=== PATIENT | female | born 1940 | race Caucasian/White ===

== ENCOUNTER → 2017-04-24 10:21 | Outpatient (CLI) | payer MEDICARE, SELFPAY ==
[2017-03-03 12:54] VITALS: BP 161/81; BMI 34.9
== END ==
PROVIDERS: Family Provider Family Medicine; PCP Family Medicine; Visit Provider Family Medicine
DX: E55.9 Vitamin D deficiency, unspecified (principal)
CPT/HCPCS: 36415; 82306

== ENCOUNTER → 2018-02-11 08:30 | Outpatient (CLI) | payer MEDICARE, SELFPAY ==
--- NOTE | 2018-02-11 08:34 | BI_ITS ---
MAMMOGRAPHY - BILATERAL SCREENING REASON FOR EXAM: Female, 77 years old. Routine annual screening examination. PERTINENT HISTORY: Personal history of breast cancer. Prior right lumpectomy with radiation treatment. Prior left stereotactic breast biopsy. TECHNIQUE: Digital bilateral breast haylee (3D mammographic acquisition) in the CC and MLO projections. 2-D mediolateral oblique (MLO) and craniocaudad (CC) views of both breasts were obtained. CAD: Full Field Digital Mammography with Computer Added Detection was performed. COMPARISON: Comparison is made with prior study dated February 10, 2017 and February 05, 2016. FINDINGS: Breast Composition: The breasts are extremely dense, which lowers the sensitivity of mammography. There are no dominant masses or suspicious calcifications. The patient is status post lumpectomy in the deep upper lateral aspect of the right breast with resultant postoperative or changes in the breast. These are unchanged. 3 tissue clip markers are seen in the upper lateral portion of the left breast. No other significant abnormalities are identified. There has been no significant change since the prior study. BI/SCREENING MAMM (CAD), BILAT IMPRESSION: Stable bilateral screening mammogram. Yearly follow-up mammogram recommended. (A) ASSESSMENT CATEGORY: BIRADS Category 2: Benign. A letter regarding these results will be sent to the patient by the facility within 30 days. Approximately 10% of breast cancers are not detected by mammography. A normal mammogram should not delay biopsy of a clinically suspicious abnormality. [id number] Electronically Signed: Dick Lilly MD at 10:19 EST Tel [phone], Service support ,
--- OUTSIDE RECORDS SUMMARY | 2018-04-08 08:10 | XMS RPT_ITS ---
:1940 Author Organization [facility] Care Team Providers Name Role Phone Yosef Babin Attending Unavailable Jolliff, Irais Primary Care Unavailable Yosef Babin Attending Unavailable Jolliff, Irais Attending Unavailable Jolliff, Irais Primary Care Unavailable Jolliff, Irais Attending Unavailable Jolliff, Irais Primary Care Unavailable Yosef Babin Attending Unavailable Yosef Babin Referring Unavailable Jolliff, Irais Primary Care Unavailable Yosef Babin Attending Unavailable Jolliff, Irais Primary Care Unavailable Yosef Babin Consulting Unavailable PROBLEMS PROBLEMS DATE TYPE CONDITION / CODE ATTENDING STATUS SOURCE 02/17/2018 Unknown C50.919 - Yosef Babin Active [facility] unspecified site Repository of unspecified female breast / C50.919(ICD-10) 02/17/2018 Unknown C50.911 - Yosef Babin Active [place] [facility] unspecified site Repository of right female breast / C50.911(ICD-10) 04/24/2017 Unknown E55.9 - Vitamin D Irais Reynoso Active [place] deficiency, Community unspecified / Hospital E55.9(ICD-10) Repository PROCEDURES PROCEDURES No Procedure Records FoundRESULTS RESULTS ONCOLOGY VISIT REPORT Observed: 02/17/2018 Status: F Source: [facility] 3:18 PM REPOSITORY [facility] [place] [address] OFFICE VISIT Date of Service: 02/17/18 1513 MR#: [id number] Acct: [id number] Name: SHU CARLISLE Rep #: [id number] : 1940 From: Yosef Babin MD Age/Sex: 77/F Location: OMD Status: Signed Subjective - Date of Service Date of Service:: 02/17/18 - Chief Complaint F/u for R breast cancer. 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 S/P partial mastectomy and sentinel node biopsy axillary dissection. Date of diagnosis: 05/06/2006. S/P XRT to the right breast completed 08/17/2006. Took Arimidex 06/2006-07/2011. She is on observation, comes in for follow up. - Past Medical/Social History Past Medical History Past Medical History: Diabetes mellitus,Hyperlipidemia,Hypertension Cancer: Breast cancer Past Surgical History Surgical: Mastectomy Family History Paternal Past Medical History: Heart disease Maternal Past Medical History: Stroke Social History Social History: No changes Smoking Status Never smoker Review of Systems Constitutional:: Denies: Fever, Sweats, Weight loss, Appetite change, Chills Cardiovascular:: Denies: Chest pain, Palpitations, Dyspnea on exertion, Orthopnea, PND, Shortness of breath Respiratory: Denies: Cough, Hemoptysis, Shortness of Breath, Wheezing Gastrointestinal:: Denies: Abdominal pain, Nausea, Vomiting, Diarrhea, Constipation, Hematochezia Genitourinary: Denies: Dysuria, Hematuria, 15, Flank pain Musculoskeletal:: Denies: Back pain, Myalgia, Arthralgia Skin: Denies: Rash, Skin Changes, Wounds Neurological:: Denies: Headache, Dizziness, Visual changes, Tinnitus, Hearing loss Psychiatric: Denies: Anxiety, Depression, Homicidal Ideations, Suicidal Ideations Vital Signs Height 5 ft 5 in Weight: 95.254 kg Weight in Pounds 210.0 lbs Pulse Ox 98 - Physical Exam General: Alert, Oriented x3, No apparent distress HEENT: Atraumatic, PERRLA, EOMI, Normocephalic Oropharynx:: Dry mucosa Neck:: Supple, Trachea midline. Negative for: JVD, bilateral Cardiac:: Regular rate, Regular rhythm, Normal S1, Normal S2. Negative for: Murmur Lungs: Clear to auscultation, Excusion symmetrical. Negative for: Rhonchi, Wheezes Abdomen:: Bowel sounds x 4, Soft, Non-tender, Non-distended. Negative for: Hepatosplenomegaly Extremities:: Negative for: Cyanosis, Edema Neurological: Neuro grossly intact Skin:: Negative for: Lesions, Rash, Petechiae, Ecchymosis Psychiatric:: Appropriate affect, Euthymic Lymphatics:: Negative for: Cervical lymphadenopathy, Supraclavicular lymphadenopathy, Axillary lymphadenopathy Breast:: - - R breast-scar UO quadrant, L breast no masses. Laboratory Data: Laboratory Tests WBC 6.0 (4.4-11.0) K/mm3 RBC 4.86 (4.2-5.4) M/mm3 Hgb 13.3 (12.0-15.0) g/dl Diagnostic Data: 02/11/2018 Mammogram reviewed. BI/SCREENING MAMM (CAD), BILAT IMPRESSION: Stable bilateral screening mammogram. Yearly follow-up mammogram recommended. (A) Assessment and Plan Right Breast Cancer, stage IIB. No evidence of disease clinically. Plan is to continue observation. Obtain Mammogram in Jan 2019. RTC 12 months with CBC, CMP. Primary Care Provider: Referring Provider: Dr. Rohan Reynoso. - Problem List (1) History of right breast cancer Status: Chronic Code Visit Office Visits / Consults: [id number] OV L3 Est 02/17/18 0358 <Electronically signed by Yosef Babin MD> Date Yosef Babin MD Cosigner Signature: Date (if applicable) CC: Irais Reynoso MD CBC W/DIFF, AUTOMATED Collected: 02/17/2018 Status: F Source: [facility] 2:00 PM REPOSITORY Order Comment: Reason for Laboratory Test OV TYPE CODE TESTS RESULT OUT OF RANGE REFERENCE UNITS LAB L100.1000 4.4-11.0 K/mm3 Normal WBC 6.0 LAB L100.1200 4.2-5.4 M/mm3 Normal RBC 4.86 LAB L100.1300 12.0-15.0 g/dl Normal HGB 13.3 LAB L100.1400 37-47 % Normal HCT 41.3 LAB L100.1500 81-99 fL Normal MCV 85.0 LAB L100.1600 27.0-32.0 pg Normal MCH 27.4 LAB L100.1700 32-36 g/gl Normal MCHC 32.2 LAB L100.1810 11.6-14.6 % Normal RDW CV 14.5 LAB L100.1820 35.1-43.9 fl High RDW SD 44.9 LAB L100.1900 150-450 K/mm3 Normal PLT 189 LAB L100.2000 6.2-12.0 fl Normal MPV 10.5 LAB L100.2100 47-70 % Normal NEUT% 63.7 LAB L100.2200 19-41 % Normal LY% 27.6 LAB L100.2300 0-10 % Normal MONO% 6.0 LAB L100.2400 0-5 % Normal EO% 2.2 LAB L100.2500 0-1 % Normal BASO% 0.3 LAB L100.2550 0.0-0.9 % Normal IM GRAN % 0.200 Result Comment: IG% - Immature Granulocytes (promyelocytes, myelocytes and metamyelocytes) > 1% indicates that a LEFT SHIFT is Present. LAB L100.2620 2.0-7.7 X10 3/uL Normal Absolute Neut 3.9 LAB L100.2720 0.83-4.51 X10 3/ul Normal Absolute Lymph 1.67 Performed By: #### L100.0100 #### [facility] [place], [place], [id number] COMPREHENSIVE METABOLIC Collected: 02/17/2018 Status: F Source: [facility] GARZA 2:00 PM REPOSITORY Order Comment: Reason for Laboratory Test OV TYPE CODE TESTS RESULT OUT OF RANGE REFERENCE UNITS LAB L501.0100 74-106 mg/dL High GLU 128 Result Comment: Fasting Glucose result greater than or equal to 126 mg/dL suggests DIABETES MELLITUS per A.D.A. criteria. Please note revised GLUCOSE reference range effective 2017. LAB L501.1000 7-18 mg/dL High BUN 33 LAB L501.1100 0.55-1.02 mg/dL High CREAT,SERUM 1.11 Result Comment: The validity of the calculated GFR AND GFRAA in patients over 70 years has not been determined. Clinical correlation is essential. LAB L501.1110 >60 mL/min Low EST GFR 50 Result Comment: Non- GFR Calc LAB L501.1115 >60 mL/min Normal EST GFR - AA 61 Result Comment: GFR Calc LAB L501.1255 ml/min Normal Estimated CRCL 36.98 LAB L501.1300 10-20 RATIO High BUN/CRE 29.7 LAB L501.1500 6.4-8. g/dL Normal 2 T PROT 7.4 LAB L501.1800 3.2-5. g/dL Normal 0 ALB 3.6 LAB L501.1950 2.2-4. g/dL Normal 2 GLOB 3.8 LAB L501.2000 0.9-2. RATIO Normal 4 A/G 0.9 LAB L501.2200 8.5-10 mg/dL Normal .1 CA 8.9 LAB L501.4100 15-37 U/L Low AST 12 LAB L501.4305 45-117 U/L Normal ALK P 112 LAB L501.4405 13-56 U/L Normal ALT 15 LAB L501.4600 0.20-1 mg/dL Normal .00 T BILI 0.30 LAB L501.5300 136-14 mmol/L Normal 5 NA 142 LAB L501.5600 3.5-5. mmol/L Normal 1 K 3.9 LAB L501.5900 98-107 mmol/L High CL 108 LAB L501.6100 21.0-3 mmol/L Normal 2.0 CO2 26.0 LAB L501.6200 5-15 Normal GAP 8 Performed By: #### L500.4050 #### [facility] [address] [place], [address] SCREENING MAMM (CAD), Observed: 02/11/2018 Status: F Source: [facility] LANZA 8:34 AM REPOSITORY [facility] Imaging Services [address] [place] [address] SCREENING MAMM (CAD), BILAT MR#: [id number] Acct: [id number] Name: SHU CARLISLE Rep #: [id number] : 1940 F 77 From: Dick Lilly MD PCP: Irais Reynoso MD Status: REG CLI Study: SCREENING MAMM (CAD), BILAT Date of Exam: 02/11/18 Exam# [id number] Ordering Dr: Yosef Babin MD MAMMOGRAPHY - BILATERAL SCREENING REASON FOR EXAM: Female, 77 years old. Routine annual screening examination. PERTINENT HISTORY: Personal history of breast cancer. Prior right lumpectomy with radiation treatment. Prior left stereotactic breast biopsy. TECHNIQUE: Digital bilateral breast haylee (3D mammographic acquisition) in the CC and MLO projections. 2-D mediolateral oblique (MLO) and craniocaudad (CC) views of both breasts were obtained. CAD: Full Field Digital Mammography with Computer Added Detection was performed. COMPARISON: Comparison is made with prior study dated February 10, 2017 and February 05, 2016. FINDINGS: Breast Composition: The breasts are extremely dense, which lowers the sensitivity of mammography. There are no dominant masses or suspicious calcifications. The patient is status post lumpectomy in the deep upper lateral aspect of the right breast with resultant postoperative or changes in the breast. These are unchanged. 3 tissue clip markers are seen in the upper lateral portion of the left breast. No other significant abnormalities are identified. There has been no significant change since the prior study. BI/SCREENING MAMM (CAD), BILAT IMPRESSION: Stable bilateral screening mammogram. Yearly follow-up mammogram recommended. (A) ASSESSMENT CATEGORY: BIRADS Category 2: Benign. A letter regarding these results will be sent to the patient by the facility within 30 days. Approximately 10% of breast cancers are not detected by mammography. A normal mammogram should not delay biopsy of a clinically suspicious abnormality. [id number] Electronically Signed: Dick Lilly MD at 10:19 EST Tel [phone], Service support , CC: Irais Reynoso MD; Yosef Babin MD Explosive Operator Bomb: Signed VITAMIN D,25 HYDROXY Collected: 04/24/2017 Status: F Source: [facility] 10:23 AM REPOSITORY TYPE CODE TESTS RESULT OUT OF REFERENCE UNITS RANGE LAB L506.1000 19.95-100.01 ng/mL Low Vitamin D 17.0 25-OH Result Comment: Vitamin D 25(OH) Status Range Deficiency <20 ng/mL (50nmol/L) Insuffciency 20 - 30 ng/mL (50 - 75 nmol/L) Sufficiency 30 - 100 ng/mL (75 - 250 nmol/L) Toxicity >100 ng/mL (>250 nmol/L) Performed By: #### L506.1000 #### [facility] [place] [place], [address] BASIC METABOLIC Collected: 03/13/2017 Status: F Source: [facility] PROFILE (BMP) 3:06 PM REPOSITORY Order Comment: Order Date: 03/13/17 Order Info: 0667-1 - BMP Order Info: 0788-1 - LIVER Order Info: 93539-1 - LIPID TYPE CODE TESTS RESULT OUT OF RANGE REFERENCE UNITS LAB L501.0100 70-110 mg/dL Normal GLU 108 LAB L501.1000 7-18 mg/dL High BUN 29 LAB L501.1100 0.55-1.02 mg/dL High 1.15 CREAT,SERUM Result Comment: The validity of the calculated GFR AND GFRAA in patients over 70 years has not been determined. Clinical correlation is essential. LAB L501.1110 >60 mL/min Low EST GFR 48 Result Comment: Non- GFR Calc LAB L501.1115 >60 mL/min Low EST GFR - AA 59 Result Comment: GFR Calc LAB L501.1300 10-20 RATIO High BUN/CRE 25.2 LAB L501.2200 8.5-10.1 mg/dL CA Normal 8.9 LAB L501.5300 136-145 mmol/L NA Normal 141 LAB L501.5600 3.5-5.1 mmol/L K Normal 3.6 LAB L501.5900 98-107 mmol/L CL Normal 103 LAB L501.6100 21.0-32.0 mmol/L Normal CO2 28.0 LAB L501.6200 5-15 Normal GAP 10 Performed By: #### L500.2500, L500.3400, L500.4100, L502.0250 #### [facility] [address] [place], [place], [address] LIVER PROFILE Collected: 03/13/2017 Status: F Source: [facility] 3:06 PM REPOSITORY Order Comment: Order Date: 03/13/17 Order Info: 0667-1 - BMP Order Info: 0788-1 - LIVER Order Info: 01975-7 - LIPID TYPE CODE TESTS RESULT OUT OF RANGE REFERENCE UNITS LAB L501.1500 6.4-8.2 g/dL Normal T PROT 7.8 LAB L501.1800 3.4-5.0 g/dL Normal ALB 3.8 Result Comment: Please note revised Albumin AND Globulin reference range effective 2016. LAB L501.1950 2.2-4.2 g/dL Normal GLOB 4.0 LAB L501.4100 15-37 U/L Low AST 14 LAB L501.4305 45-117 U/L Normal ALK P 111 LAB L501.4405 12-78 U/L Normal ALT 20 LAB L501.4600 0.20-1.00 mg/dL Normal T BILI 0.50 LAB L501.4700 0.00-0.30 mg/dL Normal D BILI 0.08 Performed By: #### L500.2500, L500.3400, L500.4100, L502.0250 #### [facility] [address] [place], [place], [address] LIPID PROFILE Collected: 03/13/2017 Status: F Source: [place] 3:06 PM REPOSITORY Order Comment: Order Date: 03/13/17 Order Info: 0667-1 - BMP Order Info: 0788-1 - LIVER Order Info: 73731-2 - LIPID TYPE CODE TESTS RESULT OUT OF RANGE REFERENCE UNITS LAB L501.4900 200 mg/dL Normal CHOL 162 Result Comment: <200 mg/dL Desirable 200-240 mg/dL Borderline >240 mg/dL High Risk LAB L501.5000 mg/dL Normal TRIG 89 Result Comment: The drugs N-Acetylcysteine and Metamizole may falsely depress this assay. Serum Triglycerides Reference Interval Normal <150 mg/dL Borderline high 150 - 199 mg/dL High 200 - 499 mg/dL Very High > or = 500 mg/dL LAB L501.6400 mg/dL Normal HDL 72 Result Comment: The drugs N-Acetylcysteine and Metamizole may falsely depress this assay. Reference Range HDL <40 mg/dL Low HDL Cholesterol HDL >or= 60 mg/dL High HDL Cholesterol LAB L501.6500 0-130 mg/dL Normal LDL 72 LAB L501.6600 5-40 mg/dL Normal VLDL 18 Performed By: #### L500.2500, L500.3400, L500.4100, L502.0250 #### [facility] [address] [place], [address] MICROALB:CREAT Collected: 03/13/2017 Status: F Source: [facility] RATIO,RANDOM UR 3:06 PM REPOSITORY Order Comment: Order Date: 03/13/17 Order Info: 0779-1 - MIACRE TYPE CODE TESTS RESULT OUT OF RANGE REFERENCE UNITS LAB L501.1200 NO RANGE EST. mg/dL Normal UR CREAT 69.20 LAB L502.0500 NO RANGE EST. mg/L Normal 52.9 MICROALBUMIN ,UR LAB L502.0600 <30 mg/g CRE mg/g CRE High 76.4 MALB:CREAT Performed By: #### L500.2500, L500.3400, L500.4100, L502.0250 #### [facility] [address] [place], [place], [address] CBC W/DIFF, AUTOMATED Collected: 03/03/2017 Status: F Source: [place] 12:34 PM REPOSITORY TYPE CODE TESTS RESULT OUT OF RANGE REFERENCE UNITS LAB L100.1000 4.4-11.0 K/mm3 Normal WBC 6.4 LAB L100.1200 4.2-5.4 M/mm3 Normal RBC 5.03 LAB L100.1300 12.0-15.0 g/dl Normal HGB 13.6 LAB L100.1400 37-47 % Normal HCT 41.4 LAB L100.1500 81-99 fL Normal MCV 82.3 LAB L100.1600 27.0-32.0 pg Normal MCH 27.0 LAB L100.1700 32-36 g/gl Normal MCHC 32.9 LAB L100.1810 11.6-14.6 % High RDW CV 15.3 LAB L100.1820 35.1-43.9 fl High RDW SD 45.9 LAB L100.1900 150-450 K/mm3 Low PLT 149 LAB L100.2000 6.2-12.0 fl High MPV 12.3 LAB L100.2100 47-70 % Normal NEUT% 61.0 LAB L100.2200 19-41 % Normal LY% 29.7 LAB L100.2300 0-10 % Normal MONO% 6.8 LAB L100.2400 0-5 % Normal EO% 2.0 LAB L100.2500 0-1 % Normal BASO% 0.3 LAB L100.2550 0.0-0.9 % Normal IM GRAN % 0.200 Result Comment: IG% - Immature Granulocytes (promyelocytes, myelocytes and metamyelocytes) > 1% indicates that a LEFT SHIFT is Present. LAB L100.2620 2.0-7.7 X10 3/uL Normal Absolute Neut 3.9 LAB L100.2720 0.83-4.51 X10 3/ul Normal Absolute Lymph 1.91 Performed By: #### L100.0100 #### [facility] [address] [place], [place], [address] ALLERGIES ALLERGIES DATE TYPE / CODE NAME / CODE REACTION SEVERITY SOURCE 02/17/2018 Drug No Known Unknown [facility] Allergy/4160 Allergies/F00 Hospital 33059(SNOMED 8543660(RXNOR Repository CT) M) ENCOUNTERS ENCOUNTERS ADMIT/DISCHARGE ACCOUNT ADMITTING ENCOUNTER LOCATION SOURCE NUMBER CLASS 02/17/2018 [id number] Ambulatory BMSBuilding:B [place] 6 MS.CF.[facility] Repository 02/17/2018 [id number] Ambulatory [place] 2 [facility] ing:OMD Repository 02/11/2018 [id number] Ambulatory [place] 2 [facility] ing:OPBI Repository 04/24/2017 [id number] Ambulatory [place] 1 [facility] ing:MFPLAB Repository 03/13/2017 [id number] Ambulatory [place] 2 [facility] ing:MFPLAB Repository 03/03/2017 [id number] Ambulatory BMSBuilding:B [place] 8 MS.[facility] Repository PAYERS PAYERS ENCOUNTER GUARANTOR PAYER SUBSCRIBER SOURCE 02/17/2018 SHU F Primary SHU F [place] [id number] [facility] Number: [id number] [facility]415YEffective Repository [address]Bpj: 330) Date:6055-18-46BC [phone] () [id number] [place] [address]EG: 02/17/2018 Secondary NOT GIVENUNK [place] Insurance:SELF PAY [facility] Number: Effective Repository Date:2018-02-17 02/17/2018 SHU F Primary SHU F [place] [id number] E Insurance:[facility] Number: [id number] [facility]415YEffective Repository [address]Vuz: 330) Date:6925-99-47NX [phone] () [id number] [place] [address]JD: 02/17/2018 Secondary NOT GIVENUNK [place] Insurance:SELF PAY [facility] Number: Effective Repository Date:2016-06-04 02/11/2018 SHU Baxter Primary SHU [id number] E Insurance:AETNA KAUFFMANDOB: [facility] Number: [id number] [id number] Repository [address]Fhm: (330) Date:9222-79-60JF [phone] (HP) [id number] [facility] [place] [address]CR: 02/11/2018 Secondary NOT GIVENUNK [place] Insurance:SELF PAY [facility] Number: Effective Repository Date:2017-12-17 04/24/2017 Shu Baxter Primary Shu [id number] E Insurance:AETNA KauffmanDOB: [facility] Number: [id number] [id number] Repository [address]Ocb: (330) Date:9043-38-91SW [phone] (HP) [id number] [facility] [place] [address]LH: 04/24/2017 Secondary NOT GIVENUNK [place] Insurance:SELF PAY [facility] Number: Effective Repository Date:2017-04-24 03/13/2017 Shu Baxter Primary Shu [id number] E Insurance:AETNA KauffmanDOB: [facility] Number: [id number], [place] [id number] Repository [address]Ycv: (330) Date:9857-97-47FP [phone] (HP) [id number] [facility] [place] [address]VE: 03/13/2017 Secondary NOT GIVENUNK [place] Insurance:SELF PAY [facility] Number: Effective Repository Date:2017-03-13 03/03/2017 Shu Baxter Primary Shu [id number] E Insurance:AETNA KauffmanDOB: [facility] Number: [id number], [place] [id number] Repository [address]Cxr: (330) Date:0222-86-87VC [phone] () [id number] [place] [address]JY: 03/03/2017 Secondary NOT GIVENUNK [place] Insurance:SELF PAY [facility]: Effective Repository Date:2017-03-03
== END ==
PROVIDERS: Family Provider Family Medicine; PCP Family Medicine; Referring Provider Internal Medicine Medical Oncology; Visit Provider Internal Medicine Medical Oncology
DX: Z12.31 Encounter for screening mammogram for malignant neoplasm of breast (principal)
CPT/HCPCS: 77063; 77067

== ENCOUNTER → 2018-04-30 11:01 | Outpatient (CLI) | payer MEDICARE, SELFPAY ==
[2018-02-17 15:19] VITALS: BMI 33.8
[2018-04-30 12:52] LABS: Microalbumin,Random Urine 59.1 mg/L (NO RANGE EST.); Microalbumin:Creatinine Ratio 61.9 mg/g CRE (<30 mg/g CRE)
[2018-04-30 13:15] LABS: AST(SGOT) 13 U/L (15-37); Alanine Aminotransfer ALT/SGPT 15 U/L (13-56); Albumin, Serum 3.9 g/dL (3.2-5.0); Alkaline Phosphatase 104 U/L (45-117); Anion Gap 11 (5-15); BUN 35 mg/dL (7-18); BUN/Creat Ratio 33.7 RATIO (10-20); Bilirubin, Direct 0.19 mg/dL (0.00-0.30); Chloride 104 mmol/L (98-107); Cholesterol 165 mg/dL (200); Creatinine, Serum 1.04 mg/dL (0.55-1.02); EST Glomerular Filtration Rate 54 mL/min (>60); Est Glom Filt Rate - Afr Amer 66 mL/min (>60); Globulin 3.4 g/dL (2.2-4.2); Glucose 98 mg/dL (74-106); High Density Lipoprotein 74 mg/dL; Protein, Total 7.3 g/dL (6.4-8.2); Sodium Level 139 mmol/L (136-145); Triglycerides 76 mg/dL; Very Low Density Lipoprotein 15 mg/dL (5-40)
== END ==
PROVIDERS: Family Provider Family Medicine; PCP Family Medicine; Visit Provider Family Medicine
DX: E11.9 Type 2 diabetes mellitus without complications (principal)
CPT/HCPCS: 36415; 80048; 80061; 80076; 82043; 82570

== ENCOUNTER → 2018-10-29 10:22 | Outpatient (CLI) | payer MEDICARE, SELFPAY ==
[2018-02-17 15:19] VITALS: BMI 33.8
[2018-10-29 12:57] LABS: Anion Gap 7 (5-15); BUN 34 mg/dL (7-18); BUN/Creat Ratio 31.5 RATIO (10-20); Chloride 107 mmol/L (98-107); Creatinine, Serum 1.08 mg/dL (0.55-1.02); EST Glomerular Filtration Rate 52 mL/min (>60); Est Glom Filt Rate - Afr Amer 63 mL/min (>60); Glucose 93 mg/dL (74-106); Potassium 3.9 mmol/L (3.5-5.1); Sodium Level 141 mmol/L (136-145)
== END ==
PROVIDERS: Family Provider Family Medicine; PCP Family Medicine; Referring Provider Family Medicine; Visit Provider Family Medicine
DX: E11.9 Type 2 diabetes mellitus without complications (principal); I10 Essential (primary) hypertension
CPT/HCPCS: 36415; 80048; 83036

== ENCOUNTER → 2018-11-24 11:28 | Outpatient (CLI) | payer MEDICARE, SELFPAY ==
[2018-02-17 15:19] VITALS: BMI 33.8
--- NOTE | 2018-11-24 11:32 | RAD_ITS ---
STUDY: X-RAY - RIGHT TIBIA AND FIBULA REASON FOR EXAM: Female, 78 years old. Unexplained bruising of right lower leg TECHNIQUE: 3 view(s) of the tibia and fibula were obtained. COMPARISON: None. FINDINGS: Normal visualized tibia. Normal visualized fibula. There are degenerative changes of the patellofemoral compartment of the knee. There are degenerative changes of the talocalcaneal joint. There is a large plantar aspect calcaneal spur. The soft tissue structures are unremarkable. RAD/Tibia & Fibula 2 Views IMPRESSION: The tibia and fibula appear normal. There are degenerative changes of the patellofemoral compartment of the knee. There are degenerative changes of the talocalcaneal articulation. There is a large plantar aspect calcaneal spur. Electronically Signed: Issa Lowery MD at 23:49 EDT , Service support ,
== END ==
PROVIDERS: Family Provider Family Medicine; PCP Family Medicine; Referring Provider Family Medicine; Visit Provider Family Medicine
DX: S89.91XA Unspecified injury of right lower leg, initial encounter (principal); X58.XXXA Exposure to other specified factors, initial encounter; M77.31 Calcaneal spur, right foot
CPT/HCPCS: 73590

== ENCOUNTER → 2019-02-14 07:59 | Outpatient (CLI) | payer MEDICARE, SELFPAY ==
[2018-02-17 15:19] VITALS: BMI 33.8
--- NOTE | 2019-02-14 08:00 | BI_ITS ---
MAMMOGRAPHY - BILATERAL SCREENING REASON FOR EXAM: Female, 78 years old. Routine annual screening examination. PERTINENT HISTORY: Personal history of breast cancer.. Prior right lumpectomy and radiation therapy. History of remote left stereotactic breast biopsy. TECHNIQUE: Digital bilateral breast sid (3D mammographic acquisition) in the CC and MLO projections. 2-D mediolateral oblique (MLO) and craniocaudad (CC) views of both breasts were obtained. CAD: Full Field Digital Mammography with Computer Added Detection was performed. COMPARISON: Comparison is made with prior study dated the February 11, 2018 and February 10, 2017. FINDINGS: Breast Composition: The breasts are extremely dense, which lowers the sensitivity of mammography. The patient is status post lumpectomy in the deep upper lateral aspect of the right breast with resultant postoperative the form of 50. This is unchanged. There now is evidence of a 1 cm well-defined nodule in the deep upper slightly lateral portion of the right breast. Correlation with ultrasound is recommended. 3 tissue clip markers are seen in the upper outer quadrant of the left breast from prior stereotactic biopsies. No other significant abnormalities are identified. BI/SCREEN MAMM (CAD) W/SID BILAT IMPRESSION: Status post right lumpectomy with resultant postoperative changes. 1 cm nodular density in the right breast as described. Correlation with ultrasound is recommended. ASSESSMENT CATEGORY: BIRADS Category 0: Incomplete. Need additional imaging evaluation. A letter regarding these results will be sent to the patient by the facility within 30 days. Approximately 10% of breast cancers are not detected by mammography. A normal mammogram should not delay biopsy of a clinically suspicious abnormality. [id number] Electronically Signed: Dick Lilly, at 9:07 EST , Service support ,
== END ==
PROVIDERS: Family Provider Family Medicine; PCP Family Medicine; Referring Provider Internal Medicine Medical Oncology; Visit Provider Internal Medicine Medical Oncology
DX: Z12.31 Encounter for screening mammogram for malignant neoplasm of breast (principal); Z85.3 Personal history of malignant neoplasm of breast
CPT/HCPCS: 77063; 77067

== ENCOUNTER → 2019-02-16 10:55 | Outpatient (CLI) | payer MEDICARE, SELFPAY ==
[2018-02-17 15:19] VITALS: BMI 33.8
--- NOTE | 2019-02-16 10:57 | US_ITS ---
STUDY: ULTRASOUND BREAST - RIGHT REASON FOR EXAM: Female, 78 years old. Abnormal screening mammogram. Patient has a history of breast cancer with prior right lumpectomy and radiation therapy. TECHNIQUE: Axial and longitudinal images of the RIGHT breast were performed with a high resolution ultrasound transducer. # OF IMAGES: 85 COMPARISON: Comparison is made with prior mammogram dated February 14, 2019. FINDINGS: RIGHT Breast: There is a 1.2 cm x 0.7 cm x 0.9 cm hypoechoic solid nodule which likely irregular margins at the 1:00 position of the breast at 1 cm from the nipple. A biopsy is recommended for further evaluation. There is a 1.8 cm x 1.6 x 1.2 cm irregular hypoechoic nodular density with posterior acoustical shadowing is seen at the lumpectomy site. Within the scar tissue, there is a 8 mm x 5 mm x 4 mm cyst. US/Breast Limited Unilateral IMPRESSION: 1.2 cm x 0.7 cm x 0.9 cm hypoechoic irregular nodule at the 1:00 position the breast at 1 cm from nipple. A biopsy is recommended. At the biopsy site, there is a 1.8 cm x 1.6 x 1.2 cm irregular hypoechoic density. Recurrent carcinoma cannot be excluded. A biopsy is recommended as well. ASSESSMENT CATEGORY: BIRADS Category 4: Suspicious - Biopsy Should Be Considered. A letter regarding these results will be sent to the patient by the facility within 30 days. Electronically Signed: Dick Lilly, at 8:56 EST , Service support ,
== END ==
PROVIDERS: Family Provider Family Medicine; PCP Family Medicine; Referring Provider Internal Medicine Medical Oncology; Visit Provider Internal Medicine Medical Oncology
DX: R92.8 Other abnormal and inconclusive findings on diagnostic imaging of breast (principal)
CPT/HCPCS: 76642

== ENCOUNTER → 2019-03-01 16:02 | Outpatient (CLI) | payer MEDICARE, SELFPAY ==
[2019-03-01 14:32] VITALS: BMI 33.3
--- NOTE | 2019-03-01 15:05 | BRBX_PTH ---
PATIENT: MIHAELA CARLISLE LOC: [facility] U#:[id number] AGE/SX: 84/F ROOM: RE03/01/[address]: Dr. Aaron Negrete MD : 1940 BED: DIS: SPEC #: [id number] RECD: 03/01/19 16:04 STATUS: CHRIS BRONWYN #: [id number] RIKKI: 03/01/19 15:[address]: Aaron Negrete DEPT: SURGICAL PATHOLOGY RECD BY: Chase Alfaro ENTERED: 03/02/19 11:46 SP TYPE: BREAST BX OTHR DR: Dr. Irais Reynoso MD Tissues: A - Right breast, NOS B - Right breast, NOS Procedures: Surgery Specimen Level IV HEADER OPERATION: Right breast biopsy x2 PRE-OP DIAGNOSIS: Right breast abnormal US TISSUE SUBMITTED: A. Right breast tissue, 1 o'clock periareolar, B. Right breast - remote lumpectomy site MICROSCOPIC DIAGNOSIS A. Right breast, 1 o'clock, periareolar, core biopsy: Consistent with hyalinized fibroadenoma. Negative for atypia or malignancy. B. Remote lumpectomy site, core biopsy: Fragments of fibroadipose tissue, fibroconnective tissue and skeletal muscle tissue with a few macrophages. Breast tissue is not present in the submitted specimen. Negative for atypia or malignancy. COCO:elli 03/03/19 COMMENT Correlation with clinical, radiologic findings and appropriate follow up are necessary. Please make reference to previous specimen ([id number]) right breast tissue with needle localization biopsy with diagnosis of invasive ductal carcinoma. MICROSCOPIC DESCRIPTION Slides are reviewed. GROSS DESCRIPTION A - Received in fixative is one container labeled with the patient's name and designated right breast periareolar. The specimen consists of multiple elongated fragments of diaz-yellow fibroadipose tissue that in aggregate measure 1.5 x 0.5 x 0.1 cm. The entire specimen is submitted in one cassette. B - Received in fixative is one container labeled with the patient's name and designated right remote lumpectomy site. The specimen consists of multiple fragments of diaz-yellow fibroadipose tissue that in aggregate measure 1 x 0.3 x 0.1 cm. The entire specimen is submitted in one cassette. / COCO:elli 03/02/19 TC:1 CPT: 64020 x2
== END ==
PROVIDERS: Family Provider Family Medicine; PCP Family Medicine; Referring Provider Surgery; Visit Provider Surgery
DX: R92.8 Other abnormal and inconclusive findings on diagnostic imaging of breast (principal)
CPT/HCPCS: 88305

== ENCOUNTER → 2019-11-04 14:24 | Outpatient (CLI) | payer MEDICARE, SELFPAY ==
[2019-03-01 14:32] VITALS: BMI 33.3
[2019-11-04 17:27] LABS: Absolute Lymphocyte Count 1.29 X10^3/uL (0.83-4.51); Absolute Neutrophil Count 4.1 X10^3/uL (2.0-7.7); Basophil# 0.04 X10^3/uL; Basophil% 0.7 % (0-1); Eosinophil# 0.09 X10^3/uL; Eosinophils% 1.5 % (0-5); Hematocrit 40.4 % (37-47); Hemoglobin 12.5 g/dL (12.0-15.0); Lymphocyte # 1.29 X10^3/ul (4.0); Lymphocyte % 21.4 % (19-41); Mean Corp Hgb Conc 30.9 g/dL (32-36); Mean Corpuscular Hgb 26.9 pg (27.0-32.0); Mean Corpuscular Volume 87.1 fL (81-99); Mean Platelet Vol. 11.7 fl (6.2-12.0); Monocyte# 0.48 X10^3/uL; NRBC Flagged by Analyzer 0 % (0-5); Neutrophil # 4.11 X10^3/uL (2.7-7.7); Neutrophil % 68.2 % (47-70); Platelet Count 204 K/mm3 (150-450); RBC Distribution Width CV 14.6 % (11.6-14.6); RBC Distribution Width SD 45.5 fl (35.1-43.9); Red Blood Count 4.64 M/mm3 (4.2-5.4)
[2019-11-04 17:46] LABS: AST(SGOT) 11 U/L (15-37); Alanine Aminotransfer ALT/SGPT 15 U/L (13-56); Anion Gap 5 (5-15); BUN 25 mg/dL (7-18); BUN/Creat Ratio 23.8 RATIO (10-20); Calcium,Total 8.9 mg/dL (8.5-10.1); Chloride 106 mmol/L (98-107); Cholesterol 169 mg/dL (200); Creatinine, Serum 1.05 mg/dL (0.55-1.02); EST Glomerular Filtration Rate 53 mL/min (>60); Est Glom Filt Rate - Afr Amer 65 mL/min (>60); Glucose 110 mg/dL (74-106); High Density Lipoprotein 66 mg/dL; Potassium 3.8 mmol/L (3.5-5.1); Sodium Level 140 mmol/L (136-145); Triglycerides 51 mg/dL; Very Low Density Lipoprotein 10 mg/dL (5-40)
[2019-11-04 17:55] LABS: Hemoglobin A1c 5.9 % (3.8-5.6)
== END ==
PROVIDERS: PCP Family Medicine; Referring Provider Family Medicine; Visit Provider Family Medicine
DX: E11.9 Type 2 diabetes mellitus without complications (principal); I10 Essential (primary) hypertension; D50.9 Iron deficiency anemia, unspecified; E78.5 Hyperlipidemia, unspecified
CPT/HCPCS: 36415; 80048; 80061; 83036; 84450; 84460; 85025

== ENCOUNTER → 2020-02-16 10:47 | Outpatient (CLI) | payer MEDICARE, SELFPAY ==
[2019-03-01 14:32] VITALS: BMI 33.3
--- NOTE | 2020-02-16 11:04 | BI_ITS ---
MAMMOGRAPHY - BILATERAL SCREENING REASON FOR EXAM: Female, 79 years old. Routine annual screening examination. PERTINENT HISTORY: Personal history of breast cancer. Prior right lumpectomy with radiation treatment. Prior left stereotactic breast biopsy and left ultrasound-guided breast biopsy. TECHNIQUE: Digital bilateral breast sid (3D mammographic acquisition) in the CC and MLO projections. 2-D mediolateral oblique (MLO) and craniocaudad (CC) views of both breasts were obtained. CAD: Full Field Digital Mammography with Computer Added Detection was performed. COMPARISON: Comparison is made with prior study dated 02/14/2019 and 02/11/2018. FINDINGS: Breast Composition: The breasts are extremely dense, which lowers the sensitivity of mammography. There are no dominant masses or suspicious calcifications. Once again, the patient is status post lumpectomy in the axillary region of the right breast with resultant postoperative deformity. A tissue clip marker is now seen within a small nodular density in the upper slightly lateral portion of the right breast from prior ultrasound-guided biopsy. Once again, 3 tissue markers are seen in the upper outer quadrant of the left breast. No other significant abnormalities are identified. There has been no significant change since the prior study. BI/SCREEN MAMM (CAD) W/SID BILAT IMPRESSION: Stable bilateral screening mammogram. Yearly follow-up mammogram recommended. (A) ASSESSMENT CATEGORY: BIRADS Category 2: Benign. A letter regarding these results will be sent to the patient by the facility within 30 days. Approximately 10% of breast cancers are not detected by mammography. A normal mammogram should not delay biopsy of a clinically suspicious abnormality. [id number] Electronically Signed: Dick Lilly, at 12:22 EST , Service support ,
== END ==
PROVIDERS: PCP Family Medicine; Referring Provider Internal Medicine Hematology & Oncology; Visit Provider Family Medicine
DX: Z12.31 Encounter for screening mammogram for malignant neoplasm of breast (principal)
CPT/HCPCS: 77063; 77067

== ENCOUNTER 2020-04-12 08:45 | Outpatient (RCR) | payer MEDICARE, SELFPAY ==
[2020-02-23 14:22] VITALS: BMI 31.8
== END 2020-04-12 23:59 ==
LOC: IMMUN 08:45
PROVIDERS: PCP Family Medicine; Visit Provider Family Medicine
DX: Z23 Encounter for immunization (principal)
CPT/HCPCS: 0011A; 0012A; 91301

== ENCOUNTER → 2020-06-27 16:50 | Outpatient (CLI) | payer MEDICARE, SELFPAY ==
[2020-02-23 14:22] VITALS: BMI 31.8
[2020-06-27 17:58] LABS: Absolute Lymphocyte Count 1.58 X10^3/uL (0.83-4.51); Basophil# 0.04 X10^3/uL; Basophil% 0.6 % (0-1); Eosinophil# 0.07 X10^3/uL; Eosinophils% 1.1 % (0-5); Hemoglobin 12.8 g/dL (12.0-15.0); Lymphocyte # 1.58 X10^3/ul (0.83-4.51); Lymphocyte % 25.6 % (19-41); Mean Corp Hgb Conc 29.8 g/dL (32-36); Mean Corpuscular Hgb 25.5 pg (27.0-32.0); Mean Corpuscular Volume 85.8 fL (81-99); Mean Platelet Vol. 11.2 fl (6.2-12.0); Monocyte# 0.48 X10^3/uL; Monocyte% 7.8 % (0-10); NRBC Flagged by Analyzer 0 % (0-5); Neutrophil # 3.99 X10^3/uL (2.7-7.7); Neutrophil % 64.7 % (47-70); Platelet Count 193 K/mm3 (150-450); RBC Distribution Width CV 14.5 % (11.6-14.6); RBC Distribution Width SD 45.2 fl (35.1-43.9); Red Blood Count 5.01 M/mm3 (4.2-5.4); White Blood Count 6.2 K/mm3 (4.4-11.0)
[2020-06-27 18:45] LABS: ALB/GLOB Ratio 1.1 RATIO (0.9-2.4); AST(SGOT) 8 U/L (15-37); Alanine Aminotransfer ALT/SGPT 14 U/L (13-56); Albumin, Serum 3.8 g/dL (3.2-5.0); Alkaline Phosphatase 105 U/L (45-117); Anion Gap 5 (5-15); BUN 29 mg/dL (7-18); BUN/Creat Ratio 29.1 RATIO (10-20); Calcium,Total 8.9 mg/dL (8.5-10.1); Chloride 106 mmol/L (98-107); EST Glomerular Filtration Rate 57 mL/min (>60); Est Glom Filt Rate - Afr Amer 69 mL/min (>60); Globulin 3.5 g/dL (2.2-4.2); Glucose 104 mg/dL (74-106); Potassium 3.9 mmol/L (3.5-5.1); Protein, Total 7.3 g/dL (6.4-8.2); Sodium Level 140 mmol/L (136-145)
== END ==
PROVIDERS: PCP Family Medicine; Referring Provider Family Medicine; Visit Provider Family Medicine
DX: F03.90 Unspecified dementia, unspecified severity, without behavioral disturbance, psychotic disturbance, mood disturbance, and anxiety (principal)
CPT/HCPCS: 36415; 80053; 84443; 85025

== ENCOUNTER 2020-12-02 13:38 | Inpatient (IN) | payer MEDICARE, SELFPAY ==
[2020-12-02] VITALS (9 sets, daily range): BP systolic 122–189; BP diastolic 67–116; PULSE 73–86; RESP 18–20; TEMP 36.6–37.7; O2SAT 94–99; BMI 25.4; BMI 25.3
--- NOTE | 2020-12-02 13:51 | EKG12_ITS ---
Test Reason : Blood Pressure : / mmHG Vent. Rate : 096 BPM Atrial Rate : 096 BPM P-R Int : 182 ms QRS Dur : 084 ms QT Int : 382 ms P-R-T Axes : 049 000 -16 degrees QTc Int : 482 ms Sinus rhythm with Premature atrial complexes ST & T wave abnormality, consider anterolateral ischemia Prolonged QT Abnormal ECG Confirmed by COSTA JACKSON, OWEN ([id number]), brands editor KIET LEVIN ([id number]) on 12/04/2020 1:45:46 PM Referred By: ERNESTO Confirmed By:OWEN SKELTON MD
--- NOTE | 2020-12-02 13:51 | RAD_ITS ---
STUDY: X-RAY CHEST REASON FOR EXAM: Female, 80 years old. CHEST PAIN fever TECHNIQUE: XR Chest 1 View COMPARISON: Prior comparison studies are not available for review at this time. FINDINGS: There is no demonstrated pleural abnormality. There are multiple metallic clips in the right axilla. This is consistent for a prior axillary dissection. There are mastectomy changes noted. Normal size heart. Normal mediastinum and sandra. Normal visualized pulmonary arteries. There is atherosclerotic calcification of the aortic arch with tortuosity. There are diffuse degenerative changes of the visualized thoracic spine. There is degenerative osteoarthritis of the bilateral shoulders. There is no demonstrated abnormality of the visualized soft tissue structures of the upper abdomen. RAD/Chest 1 View (Portable) IMPRESSION: There are no acute findings. Electronically Signed: Aly Ochoa MD at 14:25 EDT , Service support ,
--- NOTE | 2020-12-02 13:51 | CT_ITS ---
STUDY: CT BRAIN WITHOUT CONTRAST REASON FOR EXAM: Female, 80 years old. ms change RADIATION DOSAGE (If Supplied By Facility): CTDIvol = ( 44.99 ) mGy, DLP = ( 798.92 ) mGycm TECHNIQUE: Transaxial CT imaging of the brain was performed without administration of intravenous contrast material. Individualized dose optimization techniques were used for this CT. COMPARISON: None. FINDINGS: There is cerebral atrophy with widening of the extra-axial spaces and ventricular dilatation. There are areas of decreased attenuation within the white matter tracts of the supratentorial brain, consistent with microvascular disease changes. There is no intracranial hemorrhage. There are no findings of an acute ischemic infarction. Normal soft tissue structures. Normal visualized paranasal sinuses. CT/Brain/Head without Contrast IMPRESSION: Chronic involutional changes of the brain. Electronically Signed: Nicol Almonte MD at 14:23 EDT Tel , Service support ,
--- NOTE | 2020-12-02 13:54 | EDS_ITS ---
HPI History of Present Illness Chief Complaint: Neuro S/Sx Detail of Chief Complaint: Decreased mental status. Informant: patient and spouse/S.O. Onset/Context/Timing Onset: Today Context: Gradual Onset Timing: Continuous Current Severity: Mild Maximum Severity: Moderate Narrative Narrative: 80-year-old female history of some type of heart problem which she nor her to be more specific and prior breast cancer with surgery. Patient's states that she was doing well this morning he went out to breakfast. But later in the morning she had decreased mental status. Denies nausea or vomiting. No head injury. Patient somewhat limited on her history. Prior similar symptoms: No Recent Illness/Hospitalization: No PFSH [facility] Medical History (Updated 12/02/20 @ 17:[address] Milton Faustin MD) Abnormal mammogram of right breast Breast cancer Diabetes mellitus Hyperlipidemia Hypertension Home Medications atenolol 50 mg PO DAILY #14 tab 01/17/17 [Rx Last Taken Unknown] metformin 500 mg PO DAILY #14 tab 01/17/17 [Rx Last Taken Unknown] quinapril 10 mg PO DAILY #14 tab 01/17/17 [Rx Last Taken Unknown] triamterene-hydrochlorothiazid 1 ea PO DAILY #14 cap 01/17/17 [Rx Last Taken Unknown] aspirin 81 mg tablet,delayed release 81 mg PO DAILY 03/01/19 [History Last Taken Unknown] atorvastatin 20 mg tablet 10 mg PO QHS tab 03/01/19 [History Last Taken Unknown] cholecalciferol (vitamin D3) 10 mcg (400 unit) capsule 400 unit PO DAILY 03/01/19 [History Last Taken Unknown] vitamins A,C,H-jcuo-fykmyj 14,320 unit-226 mg-200 unit capsule 1 cap PO BID 03/01/19 [History Last Taken Unknown] Allergy/AdvReac Type Severity Reaction Status Date / Time No Known Allergies Allergy Verified 02/23/20 14:19 Family History Father Heart disease Mother CVA (cerebral vascular accident) Surgical History H/O mastectomy Social History Smoking Status: Never smoker alcohol intake: never ROS ROS ED ROS Narrative Patient denies symptoms. Review of Systems ROS Unobtainable: Denies due to encephalopathy Constitutional Constitutional ED: Denies chills or fever(s) Eyes Eyes: Denies change in vision ENT ENT ED: Denies ear pain Cardiovascular Cardiovascular: Denies chest pain Respiratory/Chest Respiratory/Chest: Denies cough or dyspnea Gastrointestinal Gastrointestinal: Denies abdominal pain, diarrhea, nausea or vomiting Genitourinary Genitourinary ED: Denies dysuria Musculoskeletal Musculoskeletal: Denies myalgias Integumentary Denies rash Neurologic Neurologic: Denies headache(s) Psychiatric Psychiatric: Denies depression Endocrine Endocrinology: Denies polyuria Allergic/Immunologic Allergic/Immunologic ED: Denies urticaria EXAM Physical Exam Narrative Exam Narrative: 16-year-old female decreased mental status. Vital signs are stable she clinically feels warmer temperatures 99 9 documented by oral thermometer. She could be septic. She looks a little dehydrated. H EENT exam atraumatic. Pupils are reactive light. No facial droop. Dry mucous membranes. Neck nontender no meningismus. Lungs clear to auscultation bilaterally. Heart regular rhythm rate about 75 no murmur. Abdomen soft nontender normal bowel sounds no peritoneal signs. Moving all 4 extremities. Neurologically she is awake. She answers simple questions. She seems to have a decreased mental stat us which I think is secondary to most likely infection. She has bilateral equal symmetrical plaster patternmaker strength. She has dorsi and plantar flexion. There is no facial droop. Her speech is not slurred. Const Vital Signs: 12/02/20 13:49 12/02/20 13:52 12/02/20 13:59 Temperature 99.9 F H 99.9 F H Temperature Source Oral Oral Pulse Rate 78 78 Respiratory Rate 20 H 20 H Blood Pressure 122/67 H 122/67 H Blood Pressure Mean 85 85 Pulse Ox 94 94 Oxygen Delivery Method Room Air Room Air Room Air 12/02/20 14:17 12/02/20 16:37 12/02/20 16:47 Temperature 99.9 F H 100 F H 99 F Temperature Source Oral Oral Temporal Pulse Rate 84 Respiratory Rate 18 Blood Pressure 142/77 H Blood Pressure Mean 98 Pulse Ox 96 Oxygen Delivery Method Room Air Positive well nourished and well developed; Negative for cachectic, contractures or unkempt General Appearance ED: well developed; Negative for unkempt, cachectic, contractures, cyanotic, diaphoretic or NAD Nutritional Appearance: Negative for cachectic HEENT Reports dry mucous membranes; Denies moist mucous membranes Negative for trauma or tenderness Mouth ED: Yes dry mucous membranes Mouth: dry mucous membranes Eyes PERRL and EOMs intact bilaterally Neck no lymphadenopathy, supple and no JVD General: Negative for tenderness Chest Wall inspection of chest normal and palpation of chest normal Resp normal respiratory effort and clear to auscultation bilaterally Effort and Inspection: Negative for pain with movement Auscultation: Negative for rales, rhonchi or wheezes Cardio regular rate, regular rhythm, S1 normal heart sound, S2 normal heart sound and no murmurs GI normal to inspection, nondistended, normoactive bowel sounds, non-tender, non- distended and no masses Inspection: Negative for abdominal distention Auscultation: normoactive bowel sounds Palpation: soft; Negative for tender, guarding or rebound tenderness present Back/Spine no CVA tenderness General Back: Negative for CVA tenderness Cervical Spine: Negative for cervical spine tenderness Thoracic Spine / Upper Back: Negative for thoracic spinal tenderness or paraspinal muscle tenderness Lumbar Spine / Lower Back: Negative for lumbar spinal tenderness Extremity normal to inspection General Extremety ED: Negative for edema or tenderness General Extremity: Negative for edema Neuro No oriented x3 Neuro Narrative: She is confused to month and year. She did know the president ADENTS [facility]I given multiple choices and she knew she was in the hospital. Sensorium / Orientation: alert, orientation impaired and lethargic; Negative for stuporous Motor Exam: Negative for strength 5/5 throughout Psych mental status grossly normal Appearance: Negative for unkempt Attitude: No agitated Mood & Affect: Negative for depressed, anxious or tearful Skin no rashes or lesions noted and no wounds MDM MDM MDM Narrative Medical decision making narrative: 80-year-old female decreased mental status presenting is from an infection. She will undergo a septic work-up I will obtain a CT of her brain but clinically I do not think this is a stroke. She will receive IV fluids. Repeat exam at 5:25 PM patient is doing better after IV fluids. She will be started on IV Rocephin I will speak to the hospitalist about admission. Lab Data Attestation: I reviewed the patient's lab results. Lab results narrative: CBC shows a white count 1.5. Hemoglobin 12.5. No bands. PT PTT INR unremarkable. Electrolytes show a gap of 8. Creatinine is 0.89. Liver enzymes are unremarkable. Lactic acid is normal at 1. Urine is infected with greater than 100 white cells and 4+ bacteria. Culture will be sent. Positive nitrates also. Labs: Laboratory Results - last 24 hr 12/02/20 12/02/20 12/02/20 13:40 13:40 13:40 WBC 11.5 H RBC 4.64 Hgb 12.5 Hct 38.7 MCV 83.4 MCH 26.9 L MCHC 32.3 RDW Std Deviation 43.5 RDW Coeff of Phi 14.4 Plt Count 167 MPV 10.8 Immature Gran % (Auto) 0.300 Neut % (Auto) 91.8 H Lymph % (Auto) 2.8 L Schoolcraft % (Auto) 4.9 Eos % (Auto) 0.0 Baso % (Auto) 0.2 Absolute Neuts (auto) 10.5 H Absolute Lymphs (auto) 0.32 L Nucleated RBC % 0 PT 12.7 INR 1.0 APTT 31.2 Sodium 138 Potassium 3.6 Chloride 104 Carbon Dioxide 26.0 Anion Gap 8 BUN 29 H Creatinine 0.89 Estim Creat Clear Calc 50.93 Est GFR (MDRD) Af Amer 78 Est GFR (MDRD) Non-Af 65 BUN/Creatinine Ratio 32.7 H Glucose 140 H Lactic Acid Calcium 8.9 Total Bilirubin 0.80 AST 11 L ALT 13 Alkaline Phosphatase 103 Total Protein 7.2 Albumin 3.3 Globulin 3.9 Albumin/Globulin Ratio 0.8 L Urine Color Urine Clarity Urine pH Ur Specific Archer Urine Protein Urine Glucose (UA) Urine Ketones Urine Occult Blood Urine Nitrite Urine Bilirubin Urine Urobilinogen Ur Leukocyte Esterase Urine RBC Urine WBC Ur Squamous Epith Cells Ur Transition Epith Cell Urine Bacteria Hyaline Casts Urine Mucus 12/02/20 12/02/20 13:40 15:25 WBC RBC Hgb Hct MCV MCH MCHC RDW Std Deviation RDW Coeff of Phi Plt Count MPV Immature Gran % (Auto) Neut % (Auto) Lymph % (Auto) Schoolcraft % (Auto) Eos % (Auto) Baso % (Auto) Absolute Neuts (auto) Absolute Lymphs (auto) Nucleated RBC % PT INR APTT Sodium Potassium Chloride Carbon Dioxide Anion Gap BUN Creatinine Estim Creat Clear Calc Est GFR (MDRD) Af Amer Est GFR (MDRD) Non-Af BUN/Creatinine Ratio Glucose Lactic Acid 1.0 Calcium Total Bilirubin AST ALT Alkaline Phosphatase Total Protein Albumin Globulin Albumin/Globulin Ratio Urine Color Yellow Urine Clarity Cloudy Urine pH 6.0 Ur Specific Archer 1.010 Urine Protein 30 H Urine Glucose (UA) Normal Urine Ketones 15 H Urine Occult Blood 50 H Urine Nitrite Positive H Urine Bilirubin Negative Urine Urobilinogen Normal Ur Leukocyte Esterase 500 H Urine RBC 0-5 SEEN Urine WBC >100 SEEN Ur Squamous Epith Cells 0-5 SEEN Ur Transition Epith Cell 0-5 SEEN Urine Bacteria 4+ Hyaline Casts 0-5 SEEN Urine Mucus 0 SEEN Radiography Chest X-Ray - ED: 1 View Diagnostic Testing: Radiology Impression Brain CT 12/02/20 13:51 IMPRESSION: Chronic involutional changes of the brain. Electronically Signed: Nicol Almonte MD at 14:23 EDT Tel , Service support , Chest X-Ray 12/02/20 13:51 IMPRESSION: There are no acute findings. Electronically Signed: Aly Ochoa MD at 14:25 EDT , Service support , Chest x-ray portable 1 view interpreted both by myself and radiologist shows no acute bony. EKG Initial EKG: Attestation: I personally reviewed and interpreted this EKG as follows: Interpretation: Sinus Rhythm Comments: Sinus rhythm with PACs. There is inverted T waves and ST flattening in V2 through V6 which is new from the most recent EKG that we have from 2006. Prior: Changed Discharge Plan Triage Chief Complaint: Neuro S/Sx ED Provider: Milton Faustin Dx/Rx/DC Orders Clinical Impression: Urinary tract infection, Delirium Prescriptions: No Action atorvastatin 20 mg tablet 10 mg PO QHS RF: 0 cholecalciferol (vitamin D3) 400 unit capsule 400 unit PO DAILY RF: 0 aspirin 81 mg tablet,delayed release (DR/EC) 81 mg PO DAILY RF: 0 PreserVision AREDS 14,320-226-200 ddzp-ub-aahi capsule 1 cap PO BID RF: 0 metformin 500 MG tablet 500 mg PO DAILY Qty: 14 RF: 0 triamterene-hydrochlorothiazid 1 EACH capsule 1 ea PO DAILY Qty: 14 RF: 0 quinapril 10 MG tablet 10 mg PO DAILY Qty: 14 RF: 0 atenolol 50 MG tablet 50 mg PO DAILY Qty: 14 RF: 0 Primary Care Provider: Irais Reynoso Referrals: Irais Reynoso MD [Primary Care Provider] - Disposition Disposition: Acute Care Hospital [facility]
[2020-12-02 14:04] LABS: Absolute Lymphocyte Count 0.32 X10^3/uL (0.83-4.51); Absolute Neutrophil Count 10.5 X10^3/uL (2.0-7.7); Basophil# 0.02 X10^3/uL; Basophil% 0.2 % (0-1); Hematocrit 38.7 % (37-47); Hemoglobin 12.5 g/dL (12.0-15.0); Lymphocyte # 0.32 X10^3/ul (0.83-4.51); Lymphocyte % 2.8 % (19-41); Mean Corp Hgb Conc 32.3 g/dL (32-36); Mean Corpuscular Hgb 26.9 pg (27.0-32.0); Mean Corpuscular Volume 83.4 fL (81-99); Mean Platelet Vol. 10.8 fl (6.2-12.0); Monocyte# 0.56 X10^3/uL; Monocyte% 4.9 % (0-10); NRBC Flagged by Analyzer 0 % (0-5); Neutrophil # 10.52 X10^3/uL (2.7-7.7); Neutrophil % 91.8 % (47-70); POSITIVE DIFFERENTIAL YES; Platelet Count 167 K/mm3 (150-450); RBC Distribution Width CV 14.4 % (11.6-14.6); RBC Distribution Width SD 43.5 fl (35.1-43.9); Red Blood Count 4.64 M/mm3 (4.2-5.4); White Blood Count 11.5 K/mm3 (4.4-11.0)
[2020-12-02 14:07] LABS: Differential Indicated SCAN CRITERIA MET
[2020-12-02 14:10] LABS: Prothrombin Time (Protime)PT. 12.7 SECONDS (11.7-14.9)
[2020-12-02 14:11] LABS: Partial Thromboplast Time 31.2 Seconds (24.1-36.2)
[2020-12-02 14:17] LABS: ALB/GLOB Ratio 0.8 RATIO (0.9-2.4); AST(SGOT) 11 U/L (15-37); Alanine Aminotransfer ALT/SGPT 13 U/L (13-56); Albumin, Serum 3.3 g/dL (3.2-5.0); Alkaline Phosphatase 103 U/L (45-117); Anion Gap 8 (5-15); BUN 29 mg/dL (7-18); BUN/Creat Ratio 32.7 RATIO (10-20); Calcium,Total 8.9 mg/dL (8.5-10.1); Chloride 104 mmol/L (98-107); Creatinine, Serum 0.89 mg/dL (0.55-1.02); EST Glomerular Filtration Rate 65 mL/min (>60); Est Glom Filt Rate - Afr Amer 78 mL/min (>60); Estimated Creatinine Clearance 50.93 ml/min; Globulin 3.9 g/dL (2.2-4.2); Glucose 140 mg/dL (74-106); Potassium 3.6 mmol/L (3.5-5.1); Protein, Total 7.2 g/dL (6.4-8.2); Sodium Level 138 mmol/L (136-145)
[2020-12-02] MEDS: Acetaminophen 325 MG Tablet 650 MG PO (14:20)
[2020-12-02] MEDS: 0.9% Normal Saline 1,000 ML 999 ML IV (14:20)
[2020-12-02 15:31] LABS: Mucous, Urine 0 SEEN /hpf (<or=2+)
[2020-12-02 15:35] LABS: Color, Urine Yellow (Yellow); Glucose, Dipstick Normal (Normal); Ketone-Dipstick 15 mg/dl (Negative); Leukocyte Esterase-Dipstick 500 /ul (Negative); Nitrite-Dipstick Positive (Negative); Occult Blood-Urine 50 /ul (Negative); Protein-Dipstick 30 mg/dl (Negative); Urine Bilirubin Dipstick Negative (Negative); Urine Clarity Cloudy (Clear); Urine Urobilinogen Normal (Normal)
[2020-12-02 15:57] LABS: Bacteria 4+ /hpf (None Seen); White Blood Cells >100 SEEN /hpf (0-5)
[2020-12-02 15:58] LABS: Hyaline Cast 0-5 SEEN /lpf (0-5)
[2020-12-02 15:59] LABS: Squamous Epithelial Cells - UA 0-5 SEEN /hpf (5-10)
[2020-12-02 16:00] LABS: Transitional Epithelial - Ur 0-5 SEEN /hpf (0-5)
[2020-12-02 16:04] LABS: Red Blood Cells-Urine 0-5 SEEN /hpf (0-5)
--- NOTE | 2020-12-02 17:39 | NURSING ---
MED SURG DR CHAITANYA REEDER, MS CHANGE
--- NOTE | 2020-12-02 17:52 | PCM.HP.STD ---
Documented by User: DANIA Ibrahim 12/02/20 18:03 HPI - General General Date of Admission: 12/02/20 Date of Service: 12/02/20 Chief Complaint: Altered mental status HPI Narrative MIHAELA CARLISLE, is a 80 F who presents with reports per that patient has had increased confusion since breakfast. Patient and are unable to give specific medical history other than patient had breast cancer. Patient denies fever, chills, shortness of breath, cough, chest pain, nausea, vomiting. COUNT INCLUDES THE [facility] Medical History Abnormal mammogram of right breast Breast cancer Diabetes mellitus Hyperlipidemia Hypertension Home Medications atenolol 50 mg PO DAILY #14 tab 01/17/17 [Rx Last Taken Unknown] metformin 500 mg PO DAILY #14 tab 01/17/17 [Rx Last Taken Unknown] quinapril 10 mg PO DAILY #14 tab 01/17/17 [Rx Last Taken Unknown] triamterene-hydrochlorothiazid 1 ea PO DAILY #14 cap 01/17/17 [Rx Last Taken Unknown] aspirin 81 mg tablet,delayed release 81 mg PO DAILY 03/01/19 [History Last Taken Unknown] atorvastatin 20 mg tablet 10 mg PO QHS tab 03/01/19 [History Last Taken Unknown] cholecalciferol (vitamin D3) 10 mcg (400 unit) capsule 400 unit PO DAILY 03/01/19 [History Last Taken Unknown] vitamins A,C,L-dxla-srnyxq 14,320 unit-226 mg-200 unit capsule 1 cap PO BID 03/01/19 [History Last Taken Unknown] Allergy/AdvReac Type Severity Reaction Status Date / Time No Known Allergies Allergy Verified 02/23/20 14:19 Family History Father Heart disease Mother CVA (cerebral vascular accident) Surgical History H/O mastectomy Social History (Updated 12/02/20 @ 19:38 by Pat Booker) household members: spouse housing: house number of children: 0 service: No current occupational status: retired history of recent travel: No Smoking Status: Never smoker alcohol intake: never substance use type: does not use ROS Constitutional Constitutional: Reports fever(s); Denies anorexia, chills, fatigue, malaise or weakness Cardiovascular Cardiovascular: Denies chest pain, edema or palpitations Respiratory/Chest Respiratory/Chest: Denies cough, shortness of breath at rest or shortness of breath with exertion Gastrointestinal Gastrointestinal: Denies abdominal pain, constipation, diarrhea, nausea or vomiting Genitourinary Genitourinary: Denies dysuria or hematuria Musculoskeletal Musculoskeletal: Denies back pain, extremity pain, joint pain or joint stiffness Integumentary Integumentary: Denies dry skin Neurologic Neurologic: Reports confusion; Denies abnormal gait or abnormal speech Psychiatric Psychiatric: Denies anxiety or depression Endocrine Endocrinology: Denies change in body appearance Hematologic/Lymphatic Hematologic/Lymphatic: Denies anemia, easy bleeding or easy bruising Vital Signs Vital Signs Vital Signs: 12/02/20 13:49 12/02/20 13:52 12/02/20 13:59 Temperature 99.9 F H 99.9 F H Temperature Source Oral Oral Pulse Rate 78 78 Respiratory Rate 20 H 20 H Blood Pressure 122/67 H 122/67 H Blood Pressure Mean 85 85 Pulse Ox 94 94 Oxygen Delivery Method Room Air Room Air Room Air 12/02/20 14:17 12/02/20 16:37 12/02/20 16:47 Temperature 99.9 F H 100 F H 99 F Temperature Source Oral Oral Temporal Pulse Rate 84 Respiratory Rate 18 Blood Pressure 142/77 H Blood Pressure Mean 98 Pulse Ox 96 Oxygen Delivery Method Room Air Weight Weight: 172 lb 2.896 oz Body Mass Index (BMI) 25.4 Physical Exam Const alert and no apparent distress Orientation / Consciousness: oriented to person, oriented to place and confused HEENT normocephalic and head/scalp atraumatic Eyes conjunctivae normal and no scleral icterus Neck supple and no JVD General: trachea midline Resp normal respiratory effort, normal air movement and clear to auscultation bilaterally Cardio regular rate, regular rhythm, S1 normal heart sound, S2 normal heart sound and peripheral pulses 2+ throughout GI normal to inspection, nondistended, normoactive bowel sounds, soft to palpation and non-tender Extremity normal capillary refill and no clubbing, cyanosis or edema General Extremity: no tenderness to palpation of joints or extremities Skin General Skin Exam: no breakdown and turgor normal Lesions: no lesions Rashes: no rashes Neuro no focal motor deficits and no sensory deficits noted Speech: speech normal Motor Exam: general weakness Psych cooperative and affect normal Appearance: appropriate Results Lab / Micro Data Result Diagrams: 12/02/20 13:40 12/02/20 13:40 Labs: Laboratory Results - last 24 hr 12/02/20 13:40: WBC 11.5 H, RBC 4.64, Hgb 12.5, Hct 38.7, MCV 83.4, MCH 26.9 L, MCHC 32.3, RDW Std Deviation 43.5, RDW Coeff of Phi 14.4, Plt Count 167, MPV 10.8, Immature Gran % (Auto) 0.300, Neut % (Auto) 91.8 H, Lymph % (Auto) 2.8 L, [place] % (Auto) 4.9, Eos % (Auto) 0.0, Baso % (Auto) 0.2, Absolute Neuts (auto) 10.5 H, Absolute Lymphs (auto) 0.32 L, Nucleated RBC % 0 12/02/20 13:40: PT 12.7, INR 1.0, APTT 31.2 12/02/20 13:40: Sodium 138, Potassium 3.6, Chloride 104, Carbon Dioxide 26.0, Anion Gap 8, BUN 29 H, Creatinine 0.89, Estim Creat Clear Calc 50.93, Est GFR (MDRD) Af Amer 78, Est GFR (MDRD) Non-Af 65, BUN/Creatinine Ratio 32.7 H, Glucose 140 H, Calcium 8.9, Total Bilirubin 0.80, AST 11 L, ALT 13, Alkaline Phosphatase 103, Total Protein 7.2, Albumin 3.3, Globulin 3.9, Albumin/Globulin Ratio 0.8 L 12/02/20 13:40: Lactic Acid 1.0 12/02/20 15:25: Urine Color Yellow, Urine Clarity Cloudy, Urine pH 6.0, Ur Specific [place] 1.010, Urine Protein 30 H, Urine Glucose (UA) Normal, Urine Ketones 15 H, Urine Occult Blood 50 H, Urine Nitrite Positive H, Urine Bilirubin Negative, Urine Urobilinogen Normal, Ur Leukocyte Esterase 500 H, Urine RBC 0-5 SEEN, Urine WBC >100 SEEN, Ur Squamous Epith Cells 0-5 SEEN, Ur Transition Epith Cell 0-5 SEEN, Urine Bacteria 4+, Hyaline Casts 0-5 SEEN, Urine Mucus 0 SEEN Micro: Microbiology 12/02/20 14:16 Interface Orders SARS-CoV-2 Antigen (Rapid) - Final Radiology Impression Brain CT 12/02/20 13:51 IMPRESSION: Chronic involutional changes of the brain. Electronically Signed: Nicol Almonte MD at 14:23 EDT Tel , Service support , Chest X-Ray 12/02/20 13:51 IMPRESSION: There are no acute findings. Electronically Signed: Aly Ochoa MD at 14:25 EDT , Service support , Assessment & Plan Assessment/Plan (1) Urinary tract infection: QUALIFIERS: Hematuria presence: with hematuria Urinary tract infection type: site unspecified Qualified Code(s): N39.0 - Urinary tract infection, site not specified; R31.9 - Hematuria, unspecified (2) Delirium: PLAN: 1. Urinary tract infection -Admit to [facility], qSOFA score 1, patient does not meet SIRS criteria -Patient received ceftriaxone in ER, will continue -Normal saline 125 ml/hr -CBC and BMP in a.m. -Vital signs per protocol 2. Delirium -Likely secondary to 1 -Improved following fluid administration Will continue home medications for chronic diseases including hypertension, diabetes, hyperlipidemia once verified, patient states that she does not believe that she is taking all medications listed. DVT prophylaxis-subcu heparin This patient was seen by Kristine Wood, EMMANUEL-C under the supervision of Dr. Chaparro. Documented by User: Dr. Mauro Chaparro, 12/02/20 19:54 HPI - General General Date of Admission: 12/02/20 COUNT INCLUDES THE [facility] Medical History Abnormal mammogram of right breast Breast cancer Diabetes mellitus Hyperlipidemia Hypertension Home Medications atenolol 50 mg PO DAILY #14 tab 01/17/17 [Rx Last Taken Unknown] metformin 500 mg PO DAILY #14 tab 01/17/17 [Rx Last Taken Unknown] quinapril 10 mg PO DAILY #14 tab 01/17/17 [Rx Last Taken Unknown] triamterene-hydrochlorothiazid 1 ea PO DAILY #14 cap 01/17/17 [Rx Last Taken Unknown] aspirin 81 mg tablet,delayed release 81 mg PO DAILY 03/01/19 [History Last Taken Unknown] atorvastatin 20 mg tablet 10 mg PO QHS tab 03/01/19 [History Last Taken Unknown] cholecalciferol (vitamin D3) 10 mcg (400 unit) capsule 400 unit PO DAILY 03/01/19 [History Last Taken Unknown] vitamins A,C,F-jspb-qunvho 14,320 unit-226 mg-200 unit capsule 1 cap PO BID 03/01/19 [History Last Taken Unknown] Allergy/AdvReac Type Severity Reaction Status Date / Time No Known Allergies Allergy Verified 02/23/20 14:19 Family History Father Heart disease Mother CVA (cerebral vascular accident) Surgical History H/O mastectomy Social History (Updated 12/02/20 @ 19:38 by Pat Booker) household members: spouse housing: house number of children: 0 service: No current occupational status: retired history of recent travel: No Smoking Status: Never smoker alcohol intake: never substance use type: does not use Results Lab / Micro Data Result Diagrams: 12/02/20 13:40 12/02/20 13:40 Charges/Coding Addendum Addendum: Patient was seen and examined independently of Brittani Wood today, she came to the emergency room today with complaints of change in mental status, history was limited from the patient. Work-up in the emergency room included labs which showed an elevated white blood cell count at 11.5, patient's chemistry profile showed an elevated BUN of 29, urinalysis was abnormal showing more than 100 WBCs, +4 bacteria, and positive nitrates. On examination she appeared her stated age, she answers simple questions appropriately, she does not appear to be in any distress. Vital signs as documented. Skin warm and dry and without overt rashes. Neck without JVD, thyroid appears normal, trachea is midline, neck is supple. Lungs clear, normal air movement was noted. Heart exam notable for regular rhythm, normal sounds and absence of murmurs, rubs or gallops. Abdomen unremarkable and without evidence of organomegaly, masses, or abdominal aortic enlargement, bowel sounds are present in all 4 quadrants, no abdominal tenderness was noted. Extremities nonedematous, no cyanosis was noted, no clubbing was noted. Neuro: Cranial nerves II through XII are grossly intact, no focal motor deficits were noted, sensation to light touch and pinprick is intact, motor exam 5/5 throughout. Psych: Patient is alert and oriented x3, she does not appear anxious or depressed, she does not appear agitated. Patient was admitted to [facility] for metabolic encephalopathy, dehydration, and acute cystitis. Patient will be given IV fluids, IV antibiotics, and labs will be monitored. I have reviewed Brittani Wood's history and physical including her medical assessment and plan of care and endorse it with the above additions. Visit Charges Inpatient E&M: 38460 Init Hosp L3
[2020-12-02] MEDS: Ceftriaxone 1 GM/50 ML BAG IV (18:09)
[2020-12-02] MEDS: 0.9% Normal Saline 1,000 ML 125 ML IV (20:00)
[2020-12-02] MEDS: Heparin Injection (Vial) 5,000 UNIT/ML VIAL 5000 UNIT SC (21:56)
[2020-12-03] MEDS: Haloperidol Lactate 5 MG/ML Vial 1 MG IV ×2 (00:57→05:48)
[2020-12-03 02:30] VITALS: BP 127/65; PULSE 63; RESP 18; TEMP 37.6; O2SAT 97
[2020-12-03] MEDS: 0.9% Normal Saline 1,000 ML 125 ML IV (05:21)
[2020-12-03 06:33] LABS: Absolute Lymphocyte Count 0.32 X10^3/uL (0.83-4.51); Absolute Neutrophil Count 9.4 X10^3/uL (2.0-7.7); Basophil# 0.01 X10^3/uL; Basophil% 0.1 % (0-1); Hematocrit 36.9 % (37-47); Hemoglobin 11.5 g/dL (12.0-15.0); Lymphocyte # 0.32 X10^3/ul (0.83-4.51); Lymphocyte % 3.2 % (19-41); Mean Corp Hgb Conc 31.2 g/dL (32-36); Mean Corpuscular Hgb 26.4 pg (27.0-32.0); Mean Corpuscular Volume 84.6 fL (81-99); Monocyte# 0.39 X10^3/uL; Monocyte% 3.8 % (0-10); NRBC Flagged by Analyzer 0 % (0-5); Neutrophil # 9.36 X10^3/uL (2.7-7.7); Neutrophil % 92.4 % (47-70); POSITIVE DIFFERENTIAL YES; Platelet Count 129 K/mm3 (150-450); RBC Distribution Width CV 14.3 % (11.6-14.6); RBC Distribution Width SD 44.4 fl (35.1-43.9); Red Blood Count 4.36 M/mm3 (4.2-5.4); White Blood Count 10.1 K/mm3 (4.4-11.0)
[2020-12-03 06:57] LABS: Anion Gap 7 (5-15); BUN 22 mg/dL (7-18); BUN/Creat Ratio 29.4 RATIO (10-20); Calcium,Total 8.3 mg/dL (8.5-10.1); Chloride 108 mmol/L (98-107); Creatinine, Serum 0.75 mg/dL (0.55-1.02); EST Glomerular Filtration Rate 79 mL/min (>60); Est Glom Filt Rate - Afr Amer 95 mL/min (>60); Estimated Creatinine Clearance 43.75 ml/min; Glucose 148 mg/dL (74-106); Potassium 3.3 mmol/L (3.5-5.1); Sodium Level 141 mmol/L (136-145)
[2020-12-03 07:13] LABS: Differential Indicated SCAN CRITERIA MET
--- NOTE | 2020-12-03 07:25 | PCS.PANDOC ---
PANDEMIC DOCUMENTATION INITIATED: Date: 10/29/2020 Time: 190
[2020-12-03 07:55] VITALS: BP 132/66; PULSE 54; RESP 18; TEMP 37.3; O2SAT 99
[2020-12-03] MEDS: Heparin Injection (Vial) 5,000 UNIT/ML VIAL 5000 UNIT SC ×2 (09:31→21:56)
[2020-12-03] MEDS: Acetaminophen 325 MG Tablet 650 MG PO (09:31)
--- NOTE | 2020-12-03 11:05 | CASEMGMT ---
RN received call from , Sergio, for initial transition planning/care coordination assessment as patient is confused. RN CM introduced self and role at [facility]. willing to participate in assessment and is able to answer all questions appropriately. Care providers, pharmacy, and demographics verified. wishes for patient to discharge home, denies need for home health at this time. Patient states he has no further needs or concerns at this time. CM to follow for discharge planning needs that may arise. PCP: [place] Specialists: none Preferred Pharmacy: [facility] Insurance: [facility] [facility] Prescription Benefit: yes Living Will/HPOA: none LNOK: Living Arrangements: Patient lives with in a 2 story home. Per patient is independent and able to ambulate stairs. states they have nieces that are will to assist with patient Transportation: self/ DME/HHC: Patient has cane and grab bars at home. No previous HHC or SNF. Will monitor need for HHC pending progress with therapy and course of treatment. Disposition Plan: Patient to discharge home with family support and follow-up plans in place. Catherine SALAZAR, RN, CM
[2020-12-03] MEDS: QUEtiapine 25 MG Tablet PO (11:11)
[2020-12-03 14:10] VITALS: BP 114/52; PULSE 47; RESP 20; TEMP 37.2
--- NOTE | 2020-12-03 17:11 | PN.HOSP_ITS ---
Subjective Subjective Patient was seen and examined today, she was agitated and aggressive earlier today and pulled her IV out, she was given Seroquel and then went to sleep. was in the room later today and talked with nursing and states that she is a little bit confused at home at times. Patient is on dementia medication at home according to her records. Objective Data Objective Data Vital Signs: Vital Signs Temp Pulse Resp BP Pulse Ox 98.9 F 47 L 20 H 114/52 L 99 12/03/20 14:10 12/03/20 14:10 12/03/20 14:10 12/03/20 14:10 12/03/20 07:55 Oxygen Delivery Method Room Air Weight: 77.6 kg Body Mass Index (BMI) 25.3 Intake & Output: Intake and Output for Last 24 Hours 12/01/20 12/02/20 12/03/20 23:59 23:59 23:59 Intake Total 1050 / 1050 1666.67 / 1666.67 Output Total 400 / 400 Balance 1050 / 650 1266.67 / 1266.67 Lab / Micro Data Result Diagrams: 12/03/20 05:50 12/03/20 05:50 Labs: Laboratory Results - last 24 hr 12/02/20 15:25: Urine Yeast Not Reportable 12/03/20 05:50: WBC 10.1, RBC 4.36, Hgb 11.5 L, Hct 36.9 L, MCV 84.6, MCH 26.4 L , MCHC 31.2 L, RDW Std Deviation 44.4 H, RDW Coeff of Phi 14.3, Plt Count 129 L, MPV 11.0, Immature Gran % (Auto) 0.500, Neut % (Auto) 92.4 H, Lymph % (Auto) 3.2 L, [place] % (Auto) 3.8, Eos % (Auto) 0.0, Baso % (Auto) 0.1, Absolute Neuts (auto) 9.4 H, Absolute Lymphs (auto) 0.32 L, Nucleated RBC % 0, Differential Comment COMMENT 12/03/20 05:50: Sodium 141, Potassium 3.3 L, Chloride 108 H, Carbon Dioxide 26.0, Anion Gap 7, BUN 22 H, Creatinine 0.75, Estim Creat Clear Calc 43.75, Est GFR (MDRD) Af Amer 95, Est GFR (MDRD) Non-Af 79, BUN/Creatinine Ratio 29.4 H, Glucose 148 H, Calcium 8.3 L Micro: Microbiology 12/02/20 15:25 Urine, Catheterized Urine Culture - Preliminary GNR 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 12/02/20 14:20 Blood Culture (Wb) - Anticubital Right Blood Culture - Preliminary 12/02/20 13:40 Blood Culture (Wb) - Anticubital Left Blood Culture - Preliminary 12/02/20 14:16 Interface Orders SARS-CoV-2 Antigen (Rapid) - Final Physical Exam Const no apparent distress and average body habitus General Appearance: cooperative, well kempt and well developed Orientation / Consciousness: awake, oriented to person, oriented to place, oriented to time and lethargic HEENT normocephalic, head/scalp atraumatic and moist oral mucous membranes Head and Scalp: normocephalic Eyes PERRL, EOMs intact bilaterally and conjunctivae normal Neck nuchal rigidity, supple, no JVD, thyroid normal and no carotid bruits General: trachea midline Resp normal respiratory effort, no retractions, no use of accessory muscles and clear to auscultation bilaterally Auscultation: Negative for rales, rhonchi or wheezes Cardio regular rate, regular rhythm, S1 normal heart sound, S2 normal heart sound, no murmurs, no rub, no gallops and no clicks GI normal to inspection, nondistended, normoactive bowel sounds, soft to palpation, non-tender and non-distended Extremity no clubbing, cyanosis or edema Skin no rashes or lesions noted General Skin Exam: no breakdown Neuro CN's II-XII intact bilaterally Neuro Narrative: Patient is somnolent at the time of my examination Psych thought process normal Psych Narrative: Patient is somnolent at the time of my examination Assessment & Plan Assessment/Plan (1) Urinary tract infection: QUALIFIERS: Urinary tract infection type: site unspecified Hematuria presence: with hematuria Qualified Code(s): N39.0 - Urinary tract infection, site not specified; R31.9 - Hematuria, unspecified PLAN: 1. 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 #3 essential hypertension-I have decreased the patient's atenolol to 25 mg daily due to the patient's age, I have also decided to stop the patient's Dyazide and monitor blood pressure #4 type 2 diabetes-patient was only on a low-dose of Metformin at home, I have decided to defer checking her blood sugars Charges/Coding Visit Charges Inpatient E&M: 70060 Subs Hosp L2
[2020-12-03] MEDS: Cefdinir 300 MG Capsule PO (21:56)
[2020-12-03] MEDS: QUEtiapine 25 MG Tablet 12.5 MG PO (21:56)
[2020-12-03] MEDS: Donepezil HCl 5 MG Tablet PO (21:56)
[2020-12-03] MEDS: Atorvastatin Calcium 10 MG Tablet PO (21:56)
[2020-12-03 22:01] VITALS: BP 150/74; PULSE 95; RESP 18; TEMP 36.6; O2SAT 95
[2020-12-04 03:41] VITALS: BP 143/82; PULSE 62; RESP 16; TEMP 36.7; O2SAT 97
[2020-12-04 07:59] VITALS: BP 156/77; PULSE 50; RESP 16; TEMP 37.2; O2SAT 99
[2020-12-04] MEDS: Lisinopril 10 MG Tablet PO (09:29)
[2020-12-04] MEDS: Aspirin E.C. 81 MG Tablet PO (09:29)
[2020-12-04] MEDS: Cefdinir 300 MG Capsule PO (09:30)
[2020-12-04] MEDS: Heparin Injection (Vial) 5,000 UNIT/ML VIAL 5000 UNIT SC (09:30)
[2020-12-04] MEDS: QUEtiapine 25 MG Tablet 12.5 MG PO (09:30)
--- NOTE | 2020-12-04 11:16 | CASEMGMT ---
Addendum entered by Vita Cardoso 12/04/20 12:53: SW received a message from Julia at [facility], they are not taking any referrals at present due to COVID and staffing. SW faxed referral to [facility], spoke w/Sara, she will review the referral and let SW Know. ADELFO Pugh Original Note: As per therapy, pt did not move well and would benefit from [facility] facility stay. SW called pt's , reviewed w/ what PT/OT had said. is agreeable to pt going to a group home for skilled care. SW reviewed with on the phone nursing homes in their preferred geographic area, that take pt's insurance, and quality and resource use data. would like a referral sent to 1. [facility], 2. [facility]. SW explained will make referral and let him know. SW called [facility], message left, faxed initial referral. SW will continue to follow. ADELFO Pugh
[2020-12-04 11:44] LABS: Absolute Lymphocyte Count 0.59 X10^3/uL (0.83-4.51); Basophil# 0.02 X10^3/uL; Basophil% 0.2 % (0-1); Eosinophil# 0.02 X10^3/uL; Eosinophils% 0.2 % (0-5); Lymphocyte # 0.59 X10^3/ul (0.83-4.51); Lymphocyte % 6.4 % (19-41); Mean Corp Hgb Conc 31.6 g/dL (32-36); Mean Corpuscular Hgb 26.8 pg (27.0-32.0); Mean Corpuscular Volume 84.8 fL (81-99); Monocyte% 6.5 % (0-10); NRBC Flagged by Analyzer 0 % (0-5); Neutrophil # 7.98 X10^3/uL (2.7-7.7); Neutrophil % 86.1 % (47-70); POSITIVE DIFFERENTIAL YES; Platelet Count 128 K/mm3 (150-450); RBC Distribution Width CV 14.4 % (11.6-14.6); RBC Distribution Width SD 44.6 fl (35.1-43.9); Red Blood Count 4.48 M/mm3 (4.2-5.4); White Blood Count 9.3 K/mm3 (4.4-11.0)
[2020-12-04 11:45] LABS: Differential Indicated SCAN CRITERIA MET
[2020-12-04 13:09] VITALS: BP 146/80; PULSE 54; RESP 18; TEMP 36.4; O2SAT 92
--- NOTE | 2020-12-04 14:14 | PCM.TXEXTCAR ---
Diet 12/04/20 12:00 Diet: Regular - General Food consistency:: Soft & Bite Sized Liquid Consistency:: Regular/Thin Type of Dietary Supplement:: Glucerna Shake Is pt able to select menu?: No Diet Comments: Meds crushed in puree; No straws; continue to feed only when ALERT Routine Orders/Code Status Routine Lab Work: - (Fingerstick blood sugarsFasting 4 PM daily, notify attending if blood sugars are over 250) Code Status: Full Code Therapies Weight Bearing: Full weight bearing Physical Therapy: Eval and Treat Occupational Therapy: Eval and Treat Problem/Diagnosis (1) Urinary tract infection: Status: Acute Comment: E.coli (2) Diabetes mellitus: Status: Acute (3) Hypertension: Status: Chronic (4) Hyperlipidemia: Status: Acute (5) Dementia: Status: Acute Allergies/Procedures Done in Hospital Allergies No Known Allergies Allergy (Verified 02/23/20 14:19) Procedures: None Type of Care/Length of Stay Estimated LOS: Convalescent Care Less Than 30 days Type of Care Needed: Skilled Rehab Potential: Good Prognosis: Good Additional Orders/Day of Discharge Day of Discharge: 12/04/20 Dietary and Speech Recommendations Dietitian Recommendations/Changes: Will change diet to liberal Regular d/t poor po intake / 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 Will continue oral nutrition supplement w/ meals Discharge Plan Admission Admit Date/Time: 12/02/20 17:36 Primary Reason for Your Visit: Urinary tract infection, metabolic encephalopathy, dementia Attending Provider: Mauro Chaparro Primary Care Provider: Irais Reynoso Discharge Orders/Prescriptions Prescriptions: New acetaminophen [Tylenol] 325 mg Tablet 650 mg PO Q6H PRN PRN (Reason: Pain 1-10 Or Fever) Qty: 0 RF: 0 atenolol 25 mg Tablet 25 mg PO DAILY Qty: 0 RF: 0 cefdinir 300 mg Capsule 300 mg PO Q12 Qty: 0 RF: 0 quetiapine 25 mg Tablet 12.5 mg PO BID Qty: 1 RF: 0 Continued atorvastatin 20 mg tablet 10 mg PO QHS RF: 0 aspirin 81 mg tablet,delayed release (DR/EC) 81 mg PO DAILY RF: 0 ergocalciferol (vitamin D2) 1,000 unit Capsule 2,000 unit PO DAILY RF: 0 PreserVision Lutein 226 mg-200 unit -5 mg-0.8 mg Capsule 1 cap PO DAILY RF: 0 quinapril 10 MG tablet 10 mg PO DAILY RF: 0 Changed metformin 500 MG tablet 500 mg PO BIDCM Qty: 0 RF: 0 donepezil 10 mg tablet 10 mg PO QHS Qty: 0 RF: 0 Discontinued triamterene-hydrochlorothiazid 37.5-25 mg capsule 1 cap PO DAILY RF: 0 atenolol 50 MG tablet 50 mg PO DAILY RF: 0 Referrals / Follow Up: Irais Reynoso MD [Primary Care Provider] - Disposition Disposition (needs filled in before D/C Order can be placed): Residential Facility
--- NOTE | 2020-12-04 14:53 | PCM.TXEXTCAR ---
Diet 12/04/20 12:00 Diet: Regular - General Food consistency:: Soft & Bite Sized Liquid Consistency:: Regular/Thin Type of Dietary Supplement:: Glucerna Shake Is pt able to select menu?: No Diet Comments: Meds crushed in puree; No straws; continue to feed only when ALERT Routine Orders/Code Status Routine Lab Work: - (Fingerstick blood sugarsFasting 4 PM daily, notify attending if blood sugars are over 250) Code Status: Full Code Therapies Weight Bearing: Full weight bearing Physical Therapy: Eval and Treat Occupational Therapy: Eval and Treat Problem/Diagnosis (1) Urinary tract infection: Status: Acute Comment: E.coli-7 days of antibiotics orally starting 12/05/2020: Omnicef 300 mg twice daily x7 days then discontinue Patient had positive blood culture for E. coli (2) Diabetes mellitus: Status: Chronic (3) Hypertension: Status: Chronic (4) Hyperlipidemia: Status: Chronic (5) Dementia: Status: Chronic (6) E. 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 Will continue oral nutrition supplement w/ meals Discharge Plan Admission Admit Date/Time: 12/02/20 17:36 Primary Reason for Your Visit: Urinary tract infection, metabolic encephalopathy, dementia Attending Provider: Mauro Chaparro Primary Care Provider: Irais Reynoso Discharge Orders/Prescriptions Prescriptions: New acetaminophen [Tylenol] 325 mg Tablet 650 mg PO Q6H PRN PRN (Reason: Pain 1-10 Or Fever) Qty: 0 RF: 0 atenolol 25 mg Tablet 25 mg PO DAILY Qty: 0 RF: 0 cefdinir 300 mg Capsule 300 mg PO Q12 Qty: 0 RF: 0 quetiapine 25 mg Tablet 12.5 mg PO BID Qty: 1 RF: 0 Continued atorvastatin 20 mg tablet 10 mg PO QHS RF: 0 aspirin 81 mg tablet,delayed release (DR/EC) 81 mg PO DAILY RF: 0 ergocalciferol (vitamin D2) 1,000 unit Capsule 2,000 unit PO DAILY RF: 0 PreserVision Lutein 226 mg-200 unit -5 mg-0.8 mg Capsule 1 cap PO DAILY RF: 0 quinapril 10 MG tablet 10 mg PO DAILY RF: 0 Changed metformin 500 MG tablet 500 mg PO BIDCM Qty: 0 RF: 0 donepezil 10 mg tablet 10 mg PO QHS Qty: 0 RF: 0 Discontinued triamterene-hydrochlorothiazid 37.5-25 mg capsule 1 cap PO DAILY RF: 0 atenolol 50 MG tablet 50 mg PO DAILY RF: 0 Referrals / Follow Up: Irais Reynoso MD [Primary Care Provider] - Disposition Disposition (needs filled in before D/C Order can be placed): Shelter Facility
--- NOTE | 2020-12-04 15:22 | CM.UR ---
Addendum entered by Vita Cardoso 12/04/20 16:06: SW spoke w/, again reiterated she is getting picked up at 4:30pm and to let staff know when he comes in to let staff know the director revenue said he is approved for compassionate visits. states understanding, no further needs anticipated. ADELFO Pugh Addendum entered by Vita Cardoso 12/04/20 15:56: SW left a second message for letting him know to let staff knows when he goes to [place] that the director revenue gave permission for him to be there for compassionate visits. ADELFO Pugh Original Note: Sara at [facility] states they can take pt, precert is waived at this time. She states can visit, he just needs to tell staff that the DON said can come visit for compassionate visits. SW faxed all discharge paperwork including transfer to extended care, Convalescent form, and med list to [facility]. SW set up a 4:30pm ambulance w/[facility]. SW let [facility] know time of pickup. SW left message for husbnad letting him know time of pickup. SW let RN here know pt is leaving today at 4:30pm. Plan: [facility], convalescent stay, skilled level of care. ADELFO Pugh
--- NOTE | 2020-12-04 19:54 | PCM.DC.SUM ---
Providers Date of Admission: 12/02/20 Date of Discharge: 12/04/20 Primary Care Physician: Dr. Irais Reynoso MD Reason For Visit: ALTERED MENTAL STATUS, ACUTE CYSTITIS Diagnosis Discharge Diagnosis (1) Urinary tract infection: Status: Acute Code(s): N39.0 - Urinary tract infection, site not specified Qualifiers: Hematuria presence: with hematuria Urinary tract infection type: site unspecified Qualified Code(s): N39.0 - Urinary tract infection, site not specified; R31.9 - Hematuria, unspecified (2) Diabetes mellitus: Status: Chronic Code(s): E11.9 - Type 2 diabetes mellitus without complications (3) Hypertension: Status: Chronic Code(s): I10 - Essential (primary) hypertension (4) Hyperlipidemia: Status: Chronic Code(s): E78.5 - Hyperlipidemia, unspecified (5) Dementia: Status: Chronic Code(s): F03.90 - Unspecified dementia without behavioral disturbance (6) E. coli bacteremia: Status: Acute Code(s): R78.81 - Bacteremia; B96.20 - Unspecified Escherichia coli [E. coli] as the cause of diseases classified elsewhere Plan: 1. Acute E. coli bacteremia from E. coli cystitis #2 E. coli cystitis #3 metabolic encephalopathy on a backdrop of chronic dementia #4 essential hypertension #5 type 2 diabetes #6 dehydration Medications at Discharge Home Medications aspirin 81 mg tablet,delayed release 81 mg PO DAILY 03/01/19 atorvastatin 20 mg tablet 10 mg PO QHS tab 03/01/19 PreserVision Lutein 1 cap PO DAILY 12/03/20 ergocalciferol (vitamin D2) 2,000 unit PO DAILY 12/03/20 quinapril 10 mg PO DAILY 12/03/20 acetaminophen [Tylenol] 650 mg PO Q6H PRN PRN #0 tab 12/04/20 atenolol 25 mg PO DAILY #0 tab 12/04/20 cefdinir 300 mg PO Q12 #0 cap 12/04/20 donepezil 10 mg PO QHS #0 tab 12/04/20 metformin 500 mg PO BIDCM #0 tab 12/04/20 quetiapine 12.5 mg PO BID #1 tab 12/04/20 Hospital Course Operations None Procedures None Summary of Care Provided Minutes Spent on Discharge: 33 Hospital Course: Stage 1-year-old white female was seen in the emergency room at [facility] after being brought in by her due to increased confusion at home. Work-up in the ER revealed an abnormal UA indicating a possible urinary tract infection and the patient's white blood cell count was elevated. Patient's BUN was elevated at 29. Patient was admitted to the medical floor and given IV fluids and IV antibiotics, she was seen by PT and OT, patient's felt that the patient would benefit from short-term inpatient rehab services and arrangements were made for her to go to a prison facility. Patient's blood culture resulted positive for E. coli. On examination she appeared her stated age, she appeared confused, she does not appear to be in any distress. Vital signs as documented. Skin warm and dry and without overt rashes. Neck without JVD, thyroid appears normal, trachea is midline, neck is supple. Lungs clear, normal air movement was noted. Heart exam notable for regular rhythm, normal sounds and absence of murmurs, rubs or gallops. Abdomen unremarkable and without evidence of organomegaly, masses, or abdominal aortic enlargement, bowel sounds are present in all 4 quadrants, no abdominal tenderness was noted. Extremities nonedematous, no cyanosis was noted, no clubbing was noted. Neuro: Cranial nerves II through XII are grossly intact, no focal motor deficits were noted, sensation to light touch and pinprick is intact, motor exam 5/5 throughout. Psych: Patient is alert and confused. On 12/04/2020, patient appeared stable for discharge to a prison facility for further inpatient care. Weight / BMI Weight Weight: 77.6 kg Body Mass Index (BMI) 25.3 ABG / Lab / Microbiology Data Result Diagrams: 12/04/20 11:25 12/03/20 05:50 Laboratory: Laboratory Results - last 24 hr 12/04/20 11:25: WBC 9.3, RBC 4.48, Hgb 12.0, Hct 38.0, MCV 84.8, MCH 26.8 L, MCHC 31.6 L, RDW Std Deviation 44.6 H, RDW Coeff of Phi 14.4, Plt Count 128 L, MPV 11.0, Immature Gran % (Auto) 0.600, Neut % (Auto) 86.1 H, Lymph % (Auto) 6.4 L, [place] % (Auto) 6.5, Eos % (Auto) 0.2, Baso % (Auto) 0.2, Absolute Neuts (auto) 8.0 H, Absolute Lymphs (auto) 0.59 L, Nucleated RBC % 0, Differential Comment COMMENT Microbiology: Microbiology 12/04/20 12:30 Nasal Secretion SARS-CoV-2 Antigen (Rapid) - Final 12/02/20 14:20 Blood Culture (Wb) - Anticubital Right Blood Culture - Preliminary GNR lactose perianesthesia manager 12/02/20 13:40 Blood Culture (Wb) - Anticubital Left Blood Culture - Final Escherichia coli 12/02/20 15:25 Urine, Catheterized Urine Culture - Final Escherichia coli 12/02/20 14:16 Interface Orders SARS-CoV-2 Antigen (Rapid) - Final Meaningful Use Info Meaningful Use Diagnoses (Choose all that apply): None applicable Discharge Plan Admission Admit Date/Time: 12/02/20 17:36 Primary Reason for Your Visit: Urinary tract infection, metabolic encephalopathy, dementia Attending Provider: Mauro Chaparro Primary Care Provider: Irais Reynoso Discharge Orders/Prescriptions Prescriptions: New acetaminophen [Tylenol] 325 mg Tablet 650 mg PO Q6H PRN PRN (Reason: Pain 1-10 Or Fever) Qty: 0 RF: 0 atenolol 25 mg Tablet 25 mg PO DAILY Qty: 0 RF: 0 cefdinir 300 mg Capsule 300 mg PO Q12 Qty: 0 RF: 0 quetiapine 25 mg Tablet 12.5 mg PO BID Qty: 1 RF: 0 Continued atorvastatin 20 mg tablet 10 mg PO QHS RF: 0 aspirin 81 mg tablet,delayed release (DR/EC) 81 mg PO DAILY RF: 0 ergocalciferol (vitamin D2) 1,000 unit Capsule 2,000 unit PO DAILY RF: 0 PreserVision Lutein 226 mg-200 unit -5 mg-0.8 mg Capsule 1 cap PO DAILY RF: 0 quinapril 10 MG tablet 10 mg PO DAILY RF: 0 Changed metformin 500 MG tablet 500 mg PO BIDCM Qty: 0 RF: 0 donepezil 10 mg tablet 10 mg PO QHS Qty: 0 RF: 0 Discontinued triamterene-hydrochlorothiazid 37.5-25 mg capsule 1 cap PO DAILY RF: 0 atenolol 50 MG tablet 50 mg PO DAILY RF: 0 Referrals / Follow Up: Irais Reynoso MD [Primary Care Provider] - Disposition Disposition (needs filled in before D/C Order can be placed): [facility] Facility Charges/Coding Visit Charges Inpatient E&M: 07474 Disch Hosp
[2020-12-10 09:37] LABS: Bedside Glucose 153 mg/dL (70-110)
== END 2020-12-04 16:55 | disposition skilled nursing facility (03) | DRG 689 ==
LOC: ED 18:34 → MS2 18:56
PROVIDERS: Admitting Provider Internal Medicine; Emergency Provider Emergency Medicine; PCP Family Medicine; Visit Provider Internal Medicine
DX: N30.01 Acute cystitis with hematuria (principal); G93.41 Metabolic encephalopathy; E11.9 Type 2 diabetes mellitus without complications; E78.5 Hyperlipidemia, unspecified; B96.20 Unspecified Escherichia coli [E. coli] as the cause of diseases classified elsewhere; F03.90 Unspecified dementia, unspecified severity, without behavioral disturbance, psychotic disturbance, mood disturbance, and anxiety; I10 Essential (primary) hypertension; Z79.899 Other long term (current) drug therapy; Z79.84 Long term (current) use of oral hypoglycemic drugs; Z79.82 Long term (current) use of aspirin; E86.0 Dehydration
CPT/HCPCS: 36415; 70450; 71045; 80048; 80053; 81001; 82962; 83605; 85025; 85610; 85730; 87040; 87077; 87086; 87088; 87186; 87426; 92526; 92610; 93005; 97162; 97166; 99285; J7030; P9612; A4216

== ENCOUNTER 2021-03-25 14:39 | Outpatient (CLI) | payer MEDICARE, SELFPAY ==
--- NOTE | 2021-03-25 14:41 | BI_ITS ---
MAMMOGRAPHY - BILATERAL SCREENING REASON FOR EXAM: Female, 80 years old. Routine annual screening examination. PERTINENT HISTORY: Personal history of breast cancer. Prior right lumpectomy with the radiation treatment. Prior left stereotactic and ultrasound-guided breast biopsies. TECHNIQUE: Digital bilateral breast sid (3D mammographic acquisition) in the CC and MLO projections. 2-D mediolateral oblique (MLO) and craniocaudad (CC) views of both breasts were obtained. CAD: Full Field Digital Mammography with Computer Added Detection was performed. COMPARISON: Comparison is made with prior study dated 02/16/2020 and 02/14/2019. FINDINGS: Breast Composition: The breasts are extremely dense, which lowers the sensitivity of mammography. There are no dominant masses or suspicious calcifications. The patient is status post lumpectomy in the axillary region of the right breast with resultant postoperative breast deformity and scarring. 2 tissue markers are seen in the deep slightly upper lateral aspect of the left breast. No other significant abnormalities are identified. There has been no significant change since the prior study. BI/SCRN MAMM (CAD)W/SID BILAT IMPRESSION: Stable bilateral screening mammogram. Yearly follow-up mammogram recommended. (A) ASSESSMENT CATEGORY: BIRADS Category 2: Benign. A letter regarding these results will be sent to the patient by the facility within 30 days. Approximately 10% of breast cancers are not detected by mammography. A normal mammogram should not delay biopsy of a clinically suspicious abnormality. [id number] Electronically Signed: Dick Lilly MD at 15:41 EST , Service support ,
== END 2021-03-25 23:59 | disposition short-term general hospital (02) ==
PROVIDERS: PCP Family Medicine; Referring Provider Internal Medicine Hematology & Oncology; Visit Provider Internal Medicine Hematology & Oncology
DX: Z12.31 Encounter for screening mammogram for malignant neoplasm of breast (principal); Z85.3 Personal history of malignant neoplasm of breast
CPT/HCPCS: 77063; 77067

== ENCOUNTER → 2021-07-24 | Outpatient (CLI) | payer MEDICARE, SELFPAY ==
[2021-07-24 18:09] LABS: Microalbumin:Creatinine Ratio 131.1 mg/g CRE (<30 mg/g CRE)
[2021-07-24 18:16] LABS: AST(SGOT) 13 U/L (15-37); Alanine Aminotransfer ALT/SGPT 17 U/L (13-56); Albumin, Serum 3.7 g/dL (3.2-5.0); Alkaline Phosphatase 116 U/L (45-117); Anion Gap 6 (5-15); BUN 44 mg/dL (7-18); BUN/Creat Ratio 36.7 RATIO (10-20); Bilirubin, Direct 0.13 mg/dL (0.00-0.30); Calcium,Total 9.6 mg/dL (8.5-10.1); Chloride 108 mmol/L (98-107); Cholesterol 177 mg/dL (200); EST Glomerular Filtration Rate 46 mL/min (>60); Est Glom Filt Rate - Afr Amer 55 mL/min (>60); Glucose 114 mg/dL (74-106); High Density Lipoprotein 71 mg/dL; Potassium 3.9 mmol/L (3.5-5.1); Protein, Total 7.7 g/dL (6.4-8.2); Sodium Level 143 mmol/L (136-145); Triglycerides 76 mg/dL; Very Low Density Lipoprotein 15 mg/dL (5-40)
== END | disposition home or self-care (01) ==
LOC: MFPLAB 16:06
PROVIDERS: PCP Family Medicine; Visit Provider Family Medicine
DX: E11.8 Type 2 diabetes mellitus with unspecified complications (principal)
CPT/HCPCS: 36415; 80048; 80061; 80076; 82043; 82570

== ENCOUNTER → 2022-06-25 | Outpatient (CLI) | payer MEDICARE, SELFPAY ==
--- NOTE | 2022-06-25 13:52 | BI_ITS ---
MAMMOGRAPHY - BILATERAL SCREENING 3-D TOMOSYNTHESIS REASON FOR EXAM: Female, 82 years old. ANNUAL SCREENING PERTINENT HISTORY: Personal history of breast cancer with previous right lumpectomy, and radiation. TECHNIQUE: 2-D mammograms and 3-D Tomosynthesis of the breast (s) were performed. CAD was performed. COMPARISON: 02/16/2020 FINDINGS: The breast composition is extremely dense fibroglandular tissue Scattered benign calcifications are seen. No dense spiculated masses or suspicious microcalcifications are identified. Stable architectural distortion from previous surgery and radiation.. There is no skin thickening or retraction. There has been no significant change since the prior study. There has been no significant change since the prior study. BI/SCRN MAMM (CAD)W/SID BILAT IMPRESSION: No mammographic signs of malignancy. Routine yearly mammograms recommended. ASSESSMENT CATEGORY: BIRADS Category 2: Benign. A letter regarding these results will be sent to the patient by the facility within 30 days. FOLLOW UP RECOMMENDATION: Yearly follow up mammogram recommended. (A) Approximately 10% of breast cancers are not detected by mammography. A normal mammogram should not delay biopsy of a clinically suspicious abnormality. Electronically Signed: Willam Vasquez MD at 14:54 EDT ,
== END | disposition home or self-care (01) ==
PROVIDERS: PCP Family Medicine; Referring Provider Internal Medicine Hematology & Oncology; Visit Provider Internal Medicine Hematology & Oncology
DX: Z12.31 Encounter for screening mammogram for malignant neoplasm of breast (principal)
CPT/HCPCS: 77063; 77067

== ENCOUNTER 2022-07-27 16:20 | Emergency (ER) | payer MEDICARE, SELFPAY ==
[2022-07-27 16:21] VITALS: BP 153/110; PULSE 64; RESP 14; TEMP 37.2; O2SAT 96; BMI 30.4
--- NOTE | 2022-07-27 16:35 | CT_ITS ---
STUDY: CT BRAIN WITHOUT CONTRAST REASON FOR EXAM: Female, 82 years old. fall, trauma RADIATION DOSAGE (If Supplied By Facility): CTDIvol = ( 47.06 ) mGy, DLP = ( 872.68 ) mGycm TECHNIQUE: Transaxial CT imaging of the brain was performed without administration of intravenous contrast material. Individualized dose optimization techniques were used for this CT. COMPARISON: December 02, 2020. FINDINGS: Normal soft tissue structures. Normal calvarium. Calcific plaquing cavernous carotids. Mild atrophy and moderate periventricular white matter ischemic changes. Normal basal ganglia and thalami. Normal brainstem. Normal cerebellum. There is no intracranial hemorrhage. There are no findings of an acute ischemic infarction. Postsurgical changes of the orbits. Normal visualized paranasal sinuses. CT/Brain/Head without Contrast IMPRESSION: Mild atrophy and moderate periventricular white matter ischemic change. No acute intracranial bleed. Electronically Signed: Param Ackerman MD at 17:19 EDT ,
--- NOTE | 2022-07-27 16:36 | EX.ED.GENINJ ---
HPI <Dr. Martine Gan DO - Last Filed: 07/27/22 19:45> History of Present Illness Chief Complaint: Fall Detail of Chief Complaint: Fall with injury to left elbow Informant: patient and spouse/S.O. Narrative Narrative: Patient presents to the emergency department via EMS from home. Patient apparently had a fall around noon while walking with her walker she states that she reached for something and lost her balance and fell. Patient must of struck something on the walker with her left elbow causing a laceration. was going to wait and see if it would stop bleeding on its own and he was due to bring her in himself but she continued to have bleeding from the elbow therefore he called EMS. Patient did hit her head on the wall but no loss of consciousness. She denies neck pain. She denies chest pain or abdominal pain. She is not on blood thinners. Patient up-to-date on immunizations including tetanus. REPLACED BY [facility] <Dr. Martine Gan DO - Last Filed: 07/27/22 19:45> REPLACED BY [facility] Medical History (Updated 07/27/22 @ 17:[address] Martine Gan DO) Abnormal mammogram of right breast Bladder problem Breast cancer Diabetes mellitus Hyperlipidemia Hypertension Home Medications aspirin 81 mg tablet,delayed release 81 mg PO DAILY Check with primary doctor 03/01/19 [History Last Taken Unknown] atorvastatin 20 mg tablet 10 mg PO QHS Check with primary doctor 03/01/19 [History Last Taken Unknown] ergocalciferol (vitamin D2) 1,000 unit capsule 2,000 unit PO DAILY Check with primary doctor 12/03/20 [History Last Taken Unknown] quinapril 10 mg tablet 10 mg PO DAILY Check with primary doctor 12/03/20 [History Last Taken Unknown] vit C 226 mg-vit E 90 mg-copper 0.8 mg-zinc oxide-lutein 5 mg capsule (PreserVision Lutein) 1 cap PO DAILY Check with primary doctor 12/03/20 [History Last Taken Unknown] acetaminophen 325 mg tablet (Tylenol) 650 mg PO Q6H PRN PRN Pain 1-10 Or Fever #0 tabs 12/04/20 [Rx Last Taken Unknown] atenolol 25 mg tablet 25 mg PO DAILY #0 tabs 12/04/20 [Rx Last Taken Unknown] cefdinir 300 mg capsule 300 mg PO Q12 #0 caps 12/04/20 [Rx Last Taken Unknown] donepezil 10 mg tablet 10 mg PO QHS Check with primary doctor #0 tabs 12/04/20 [Rx Last Taken Unknown] metformin 500 mg tablet 500 mg PO BIDCM Check with primary doctor #0 tabs 12/04/20 [Rx Last Taken Unknown] quetiapine 25 mg tablet 12.5 mg PO BID #1 TAB 12/04/20 [Rx Last Taken Unknown] cephalexin 500 mg capsule 500 mg PO Q6 #28 CAPSULES 07/27/22 [Rx Last Taken Unknown] Allergy/AdvReac Type Severity Reaction Status Date / Time No Known Allergies Allergy Verified 07/27/22 16:20 Family History Father Heart disease Mother CVA (cerebral vascular accident) Surgical History H/O mastectomy Social History household members: spouse housing: house number of children: 0 current occupational status: retired history of recent travel: No Smoking Status: Never smoker alcohol intake: never substance use type: does not use ROS <Dr. Martine Gan, - Last Filed: 07/27/22 19:45> ROS ED Review of Systems ROS Unobtainable: other Constitutional Constitutional ED: Reports lethargy; Denies chills, fever(s), sweats or weight loss Eyes Eyes: Denies blurry vision, change in vision or diplopia ENT ENT ED: Denies rhinorrhea or sore throat Cardiovascular Cardiovascular: Denies chest pain, orthopnea or racing heartbeat Respiratory/Chest Respiratory/Chest: Denies cough, dyspnea, dyspnea on exertion, orthopnea or sputum Gastrointestinal Gastrointestinal: Denies abdominal pain, diarrhea, nausea or vomiting Genitourinary Genitourinary ED: Denies dysuria, hematuria or urinary frequency Musculoskeletal Musculoskeletal: Denies arthralgias, back pain, myalgias or neck pain Integumentary Reports other Details: Left elbow laceration ; Denies abscess, Abrasions or rash Neurologic Neurologic: Denies headache(s) or weakness Psychiatric Psychiatric: Denies anxiety, depression or suicidal thoughts Endocrine Endocrinology: Denies polydipsia, polyphagia or polyuria Hematologic/Lymphatic Hematologic/Lymphatic: Denies easy bleeding, easy bruising or lymphadenopathy Allergic/Immunologic Allergic/Immunologic ED: Denies mouth swelling, tongue swelling or urticaria EXAM <Dr. Martine Gan DO - Last Filed: 07/27/22 19:45> Physical Exam Const Vital Signs: 07/27/22 16:21 Temperature 99.0 F Temperature Source Oral Pulse Rate 64 Respiratory Rate 14 Blood Pressure 153/110 H Blood Pressure Mean 124 Pulse Ox 96 Oxygen Delivery Method Room Air Positive well nourished and well developed General Appearance ED: well developed and NAD HEENT Reports TM's clear and moist mucous membranes normocephalic and atraumatic; Negative for trauma or tenderness Tympanic Membrane ED: Yes TM's clear Eyes PERRL and EOMs intact bilaterally General Eye ED: Negative for pale conjunctiva or scleral icterus Neck no lymphadenopathy, supple and no JVD General: Negative for tenderness Chest Wall inspection of chest normal and palpation of chest normal Chest: Negative for tenderness Resp normal respiratory effort and clear to auscultation bilaterally Effort and Inspection: Negative for respiratory distress or pain with movement Auscultation: Negative for rhonchi, wheezes or diminished lung sounds Cardio regular rate, regular rhythm, S1 normal heart sound, S2 normal heart sound and no murmurs Peripheral Pulses: pulses 2+ throughout GI normal to inspection, nondistended, normoactive bowel sounds, soft to palpation, non-tender, non-distended and no masses Back/Spine no CVA tenderness and no thoracic nor lumbar tenderness Extremity Extremity Narrative: Left elbow-patient has some tenderness over the olecranon. Patient has a 3 cm laceration over the olecranon. No significant deformity noted or limited range of motion noted. She is neurovascular intact distally. General Extremety ED: Negative for edema General Extremity: Negative for edema Neuro oriented x3, CN's II-XII intact bilaterally, no sensory deficits noted and gait normal Sensorium / Orientation: awake, alert, oriented to person, oriented to place and oriented to time Motor Exam: strength 5/5 throughout and strength abnormal Psych mental status grossly normal Skin no rashes or lesions noted and no wounds <Lori Carter PA - Last Filed: 07/27/22 19:08> Physical Exam Const Vital Signs: 07/27/22 16:21 Temperature 99.0 F Temperature Source Oral Pulse Rate 64 Respiratory Rate 14 Blood Pressure 153/110 H Blood Pressure Mean 124 Pulse Ox 96 Oxygen Delivery Method Room Air <DENNISE Bardales - Last Filed: 07/27/22 19:08> Procedures Lacerations laceration: Length: 1.18 in Depth: Sub Q Shape: Linear Prep: Chlorhexadine Laceration repair: Irrigated and Lidocaine Irrigated (ml): 20 Number of Sutures/[place]: 5 Suture Information: Ethilon (5-0) Comment: 3cc lidocaine infiltrated to area. MDM <Dr. Martine Gan DO - Last Filed: 07/27/22 19:45> [facility] Narrative Medical decision making narrative: Patient with a mechanical fall with laceration to her left elbow. She had a CT scan of the brain that was unremarkable and only showed chronic involutional changes. Patient also had an x-ray of the left elbow that showed no acute fractures. Suture repair was performed by physician preschool teacher assistant please see procedure note. Patient will be treated with Keflex for 7 days. Patient advised to follow-up with primary care physician in 10 days for suture removal. She is to return if increasing pain, redness, swelling, purulent drainage, or condition should worsen anyway. Radiography Diagnostic Testing: Clinical Impression(s) from Imaging Studies Brain CT 07/27/22 16:35 IMPRESSION: Mild atrophy and moderate periventricular white matter ischemic change. No acute intracranial bleed. Electronically Signed: Param Ackerman MD at 17:19 EDT , Elbow X-Ray 07/27/22 17:05 IMPRESSION: No evidence for acute fracture or dislocation. Cannot exclude nonspecific post olecranon bursal effusion. Electronically Signed: Param Ackerman MD at 17:48 EDT , Three-view x-rays of the left elbow obtained interpreted by myself as no acute fractures or dislocations. Radiology was in agreement and they felt they could not exclude nonspecific post olecranon bursal effusion. <DENNISE Bardales - Last Filed: 07/27/22 19:08> MDM Radiography Diagnostic Testing: Clinical Impression(s) from Imaging Studies Brain CT 07/27/22 16:35 IMPRESSION: Mild atrophy and moderate periventricular white matter ischemic change. No acute intracranial bleed. Electronically Signed: Param Ackerman MD at 17:19 EDT , Elbow X-Ray 07/27/22 17:05 IMPRESSION: No evidence for acute fracture or dislocation. Cannot exclude nonspecific post olecranon bursal effusion. Electronically Signed: Param Ackerman MD at 17:48 EDT , Discharge Plan Triage Chief Complaint: Fall ED Midlevel Provider: Lori Carter ED Provider: Martine Gan Dx/Rx/DC Orders Clinical Impression: Fall, Closed head injury, Contusion of elbow, left, Laceration of elbow, left Instructions: ED Head Injury (Adult), ED Laceration Extremity, ED Fall Prevention Prescriptions: New cephalexin [cephalexin] 500 mg capsule 500 mg PO Q6 Qty: 28 0RF No Action atorvastatin 20 mg tablet 10 mg PO QHS aspirin 81 mg tablet,delayed release (DR/EC) 81 mg PO DAILY ergocalciferol (vitamin D2) 1,000 unit Capsule 2,000 unit PO DAILY PreserVision Lutein 226 mg-200 unit -5 mg-0.8 mg Capsule 1 cap PO DAILY quinapril 10 MG tablet 10 mg PO DAILY acetaminophen [Tylenol] 325 mg Tablet 650 mg PO Q6H PRN PRN (Reason: Pain 1-10 Or Fever) Qty: 0 0RF atenolol 25 mg Tablet 25 mg PO DAILY Qty: 0 0RF cefdinir 300 mg Capsule 300 mg PO Q12 Qty: 0 0RF Rx Instructions: take for seven days starting 12/05/20 metformin 500 MG tablet 500 mg PO BIDCM Qty: 0 0RF donepezil 10 mg tablet 10 mg PO QHS Qty: 0 0RF Label Comments: TAKE 1 TABLET BY MOUTH EVERYDAY AT BEDTIME quetiapine 25 mg Tablet 12.5 mg PO BID Qty: 1 0RF Primary Care Provider: Irais Reynoso Referrals: Irais Reynoso MD [Primary Care Provider] - 10 Day for suture removal Disposition Disposition: Home, Self Care Discharge Date/Time: 07/27/22 18:37
--- NOTE | 2022-07-27 17:05 | RAD_ITS ---
STUDY: X-RAY - LEFT ELBOW REASON FOR EXAM: Female, 82 years old. injury TECHNIQUE: 3 view(s) of the elbow. COMPARISON: None. FINDINGS: Normal visualized humerus, radius and ulna. Normal radiocapitellar and ulnotrochlear articulations. Small olecranon spur noted There is focal soft tissue swelling noted posteriorly which may represent post olecranon bursal effusion. RAD/Elbow min 3 Views IMPRESSION: No evidence for acute fracture or dislocation. Cannot exclude nonspecific post olecranon bursal effusion. Electronically Signed: Param Ackerman MD at 17:48 EDT ,
[2022-07-27] MEDS: Lidocaine 1% (20 ml mdv) 20 ML Vial 8 ML INFILT (18:21)
[2022-07-27] MEDS: Cephalexin 250 MG Capsule 500 MG PO (18:22)
== END 2022-07-27 18:37 | disposition home or self-care (01) ==
PROVIDERS: Emergency Provider Emergency Medicine; PCP Family Medicine; Visit Provider Emergency Medicine
DX: S09.90XA Unspecified injury of head, initial encounter (principal); S50.02XA Contusion of left elbow, initial encounter; S51.012A Laceration without foreign body of left elbow, initial encounter; W19.XXXA Unspecified fall, initial encounter
CPT/HCPCS: 12001; 70450; 73080; 99285

== ENCOUNTER 2022-09-20 17:45 | Inpatient (IN) | payer MEDICARE, SELFPAY ==
[2022-09-20] VITALS (7 sets, daily range): BP systolic 150–191; BP diastolic 71–110; PULSE 54–62; RESP 18; TEMP 36.3–36.7; O2SAT 91–97; BMI 34.1; BMI 33.7
--- NOTE | 2022-09-20 18:01 | EKG12_ITS ---
Test Reason : WEAKNESS Blood Pressure : / mmHG Vent. Rate : 055 BPM Atrial Rate : 055 BPM P-R Int : 204 ms QRS Dur : 084 ms QT Int : 466 ms P-R-T Axes : 052 -02 016 degrees QTc Int : 445 ms Sinus bradycardia Minimal voltage criteria for LVH, may be normal variant ( R in aVL ) Borderline ECG Confirmed by LEIGHANN JACKSON, RUTH ANN ([id number]), scientific publications editor SNOY HENDERSON ([id number]) on 09/22/2022 11:30:35 A M Referred By: Confirmed By:ROSALIO LAWTON MD
--- NOTE | 2022-09-20 18:01 | CT_ITS ---
STUDY: CT BRAIN WITHOUT CONTRAST REASON FOR EXAM: Female, 82 years old. Trauma RADIATION DOSAGE (If Supplied By Facility): CTDIvol = ( 44.99 ) mGy, DLP = ( 745.49 ) mGycm TECHNIQUE: Transaxial CT imaging of the brain was performed without administration of intravenous contrast material. Individualized dose optimization techniques were used for this CT. COMPARISON: 07/27/2022 FINDINGS: Normal soft tissue structures. Normal calvarium. There is mild cerebral atrophy with widening of the extra-axial spaces and ventricular dilatation. There are areas of decreased attenuation within the white matter tracts of the supratentorial brain, consistent with microvascular disease changes. Normal basal ganglia and thalami. Normal brainstem. Normal cerebellum. There is no intracranial hemorrhage. There are no findings of an acute ischemic infarction. Normal visualized paranasal sinuses. CT/Brain/Head without Contrast IMPRESSION: No acute intracranial hemorrhage or mass effect. Electronically Signed: Lito Ag ([place]), at 19:31 EDT ,
--- NOTE | 2022-09-20 18:02 | EX.ED.DYSGE1 ---
HPI History of Present Illness Chief Complaint: Weakness Informant: patient and EMS Narrative Narrative: Patient presents with generalized weakness. Patient is not a good informant. She knows she has blood pressure. She knows she takes pills but states her manages this and she does not know what they are or what they are for. She admits that for the last few days she has been weaker than normal. She gets around with a walker but does not know when she last walked. She states she did fall she estimates about 2 days ago but denies hurting herself. She states she reached for something that she should not have reached for. She just states that she feels overall weak. EMS had stated that her said she has been getting weak for a few days. She has chronic weakness but it really got worse. He cannot care for her because she cannot get up and move or walk around. Review of systems is severely limited. Patient states she is weak but denies all specifics. [facility] Medical History Abnormal mammogram of right breast Bladder problem Breast cancer Diabetes mellitus Hyperlipidemia Hypertension Home Medications aspirin 81 mg tablet,delayed release 81 mg PO DAILY Check with primary doctor 03/01/19 [History Last Taken Unknown] atorvastatin 20 mg tablet 10 mg PO QHS Check with primary doctor 03/01/19 [History Last Taken Unknown] ergocalciferol (vitamin D2) 1,000 unit capsule 2,000 unit PO DAILY Check with primary doctor 12/03/20 [History Last Taken Unknown] quinapril 10 mg tablet 10 mg PO DAILY Check with primary doctor 12/03/20 [History Last Taken Unknown] vit C 226 mg-vit E 90 mg-copper 0.8 mg-zinc oxide-lutein 5 mg capsule (PreserVision Lutein) 1 cap PO DAILY Check with primary doctor 12/03/20 [History Last Taken Unknown] acetaminophen 325 mg tablet (Tylenol) 650 mg (2 x 325 mg) PO Q6H PRN PRN Pain 1-10 Or Fever #0 tabs 12/04/20 [Rx Last Taken Unknown] atenolol 25 mg tablet 25 mg PO DAILY #0 tabs 12/04/20 [Rx Last Taken Unknown] cefdinir 300 mg capsule 300 mg PO Q12 #0 caps 12/04/20 [Rx Last Taken Unknown] donepezil 10 mg tablet 10 mg PO QHS Check with primary doctor #0 tabs 12/04/20 [Rx Last Taken Unknown] metformin 500 mg tablet 500 mg PO BIDCM Check with primary doctor #0 tabs 12/04/20 [Rx Last Taken Unknown] quetiapine 25 mg tablet 12.5 mg (1/2 x 25 mg) PO BID #1 TAB 12/04/20 [Rx Last Taken Unknown] cephalexin 500 mg capsule 500 mg PO Q6 #28 CAPSULES 07/27/22 [Rx Last Taken Unknown] Allergy/AdvReac Type Severity Reaction Status Date / Time No Known Allergies Allergy Verified 07/27/22 16:20 Family History Father Heart disease Mother CVA (cerebral vascular accident) Surgical History H/O mastectomy Social History household members: spouse housing: house number of children: 0 current occupational status: retired history of recent travel: No Smoking Status: Never smoker alcohol intake: never substance use type: does not use ROS ROS ED Constitutional Constitutional ED: Denies chills or fever(s) Eyes Eyes: Denies change in vision ENT ENT ED: Denies sore throat Cardiovascular Cardiovascular: Denies chest pain Respiratory/Chest Respiratory/Chest: Denies cough Gastrointestinal Gastrointestinal: Denies abdominal pain or vomiting Genitourinary Genitourinary ED: Denies dysuria Musculoskeletal Musculoskeletal: Denies myalgias Integumentary Denies rash Neurologic Neurologic: Denies headache(s) Hematologic/Lymphatic Hematologic/Lymphatic: Denies easy bleeding or easy bruising Allergic/Immunologic Allergic/Immunologic ED: Denies urticaria EXAM Physical Exam Narrative Exam Narrative: CONSTITUTIONAL: Patient is nontoxic in appearance. The patient looks comfortable. Work of breathing looks normal. She does look dry. HEENT: No notable trauma. Mucous membranes are moderately dry. No sinus tenderness. EYES: No conjunctival injection. No proptosis. No pallor. NECK: No meningismus. No JVD. CARDIOVASCULAR: Regular rate. Regular rhythm. No notable murmur. No JVD. RESPIRATORY: No respiratory distress. Breathing is unlabored. No wheezes. No rhonchi. No rales. No pain with a deep breath. Saturations are normal at 95% on room air showing no hypoxia. GASTROINTESTINAL: Not distended. Bowel sounds are normal. No tenderness. No guarding. No rebound. No palpable mass. No bruit. GENITOURINARY: No tenderness over the bladder. No CVA tenderness. MUSCULOSKELETAL: Atraumatic. Her legs are not small but there is no notable pitting edema. No cord. No tenderness along the deep venous system. No asymmetry. NEUROLOGICAL: Patient is alert and she is oriented to person and place. She got close to saying the year but just could not get it out correctly. She did not know the president was. She is not good for her medical history. There is report of right leg weakness but she can hold both arms up for full 10 seconds. Both legs she can just get the heel off the bed for about 2 or 3 seconds and then gets weak and they drop down. They are equal right and left legs. SKIN: No noted rashes. No diaphoresis. No vesicles noted. No notable pallor. PSYCHIATRIC: Patient is calm. Mood is appropriate. Const Vital Signs: 09/20/22 17:46 09/20/22 18:33 09/20/22 18:35 Temperature 97.4 F L Temperature Source Temporal Pulse Rate 61 56 L Respiratory Rate 18 18 Respiratory Effort Normal Non-Labored Blood Pressure 156/88 H 184/90 H Blood Pressure Mean 110 121 Pulse Ox 95 91 Oxygen Delivery Method Room Air Room Air 09/20/22 20:17 Temperature Temperature Source Pulse Rate 54 L Respiratory Rate 18 Respiratory Effort Blood Pressure 191/88 H Blood Pressure Mean 122 Pulse Ox 95 Oxygen Delivery Method Room Air MDM MDM MDM Narrative Medical decision making narrative: Patient CBC shows minimal anemia which is nonspecific. Patient's electrolytes show minimal elevation above baseline with creatinine. She does have some mild dehydration with high BUN to creatinine ratio. She was given some IV fluids. Glucose is minimally up. Patient's liver found test are normal. Patient's urine is cloudy with positive nitrites and leukocyte race 10-25 white cells and 2+ bacteria. With this urinalysis and her increase in overall weakness I will treat this as UTI. Staff and contacted her but I have not talked with him directly. Evidently he has stated that she is too weak for him to care for at home. She cannot get up and move around. For this reason I have contacted hospitalist about admission. Lab Data Attestation: I reviewed the patient's lab results. Labs: Laboratory Results - last 24 hr 09/20/22 09/20/22 18:40 18:55 WBC 5.6 RBC 4.19 L Hgb 11.5 L Hct 36.7 L MCV 87.6 MCH 27.4 MCHC 31.3 L RDW Std Deviation 46.9 H RDW Coeff of Phi 14.6 Plt Count 181 MPV 10.9 Immature Gran % (Auto) 0.400 Neut % (Auto) 58.9 Lymph % (Auto) 27.5 [place] % (Auto) 10.7 H Eos % (Auto) 2.0 Baso % (Auto) 0.5 Absolute Neuts (auto) 3.3 Absolute Lymphs (auto) 1.55 Nucleated RBC % 0 Sodium 141 Potassium 4.4 Chloride 110 H Carbon Dioxide 27.0 Anion Gap 4 L BUN 29 H Creatinine 1.16 H Estim Creat Clear Calc 37.73 Est GFR (MDRD) Af Amer 57 L Est GFR (MDRD) Non-Af 47 L BUN/Creatinine Ratio 25.0 H Glucose 116 H Calcium 9.0 Total Bilirubin 0.30 AST 14 L ALT 13 Alkaline Phosphatase 124 H Total Protein 7.2 Albumin 3.3 Globulin 3.9 Albumin/Globulin Ratio 0.8 L Urine Color Yellow Urine Clarity Sl. Cloudy Urine pH 6.5 Ur Specific [place] 1.010 Urine Protein 30 H Urine Glucose (UA) Normal Urine Ketones Negative Urine Occult Blood 10 H Urine Nitrite Positive H Urine Bilirubin Negative Urine Urobilinogen Normal Ur Leukocyte Esterase 500 H Urine RBC 0 SEEN Urine WBC 10-25 SEEN Ur Squamous Epith Cells 0 SEEN Urine Bacteria 2+ Urine Mucus 0 SEEN Radiography Diagnostic Testing: Clinical Impression(s) from Imaging Studies Brain CT 09/20/22 18:01 IMPRESSION: No acute intracranial hemorrhage or mass effect. Electronically Signed: Lito Ag (Brooks), at 19:31 EDT , Chest X-Ray 09/20/22 19:20 IMPRESSION: Nonacute portable x-ray examination of the chest. Electronically Signed: Lito Ag (Brooks), at 19:32 EDT , Management Discussion w/another healthcare provider: Hospitalist Discharge Plan Dx/Rx/DC Orders Clinical Impression: Generalized weakness, Acute UTI, Unable to ambulate Disposition Disposition: Acute Care Hospital [facility]
[2022-09-20 18:49] LABS: Mucous, Urine 0 SEEN /hpf (<or=2+); Red Blood Cells-Urine 0 SEEN /hpf (0-5); Squamous Epithelial Cells - UA 0 SEEN /hpf (5-10)
[2022-09-20 18:50] LABS: Color, Urine Yellow (Yellow); Glucose, Dipstick Normal (Normal); Ketone-Dipstick Negative (Negative); Leukocyte Esterase-Dipstick 500 /ul (Negative); Nitrite-Dipstick Positive (Negative); Occult Blood-Urine 10 /ul (Negative); Protein-Dipstick 30 mg/dl (Negative); Urine Bilirubin Dipstick Negative (Negative); Urine Clarity Sl. Cloudy (Clear); Urine Urobilinogen Normal (Normal); Urine pH 6.5 (5.0 - 8.0)
[2022-09-20 19:00] LABS: Absolute Lymphocyte Count 1.55 X10^3/uL (0.83-4.51); Absolute Neutrophil Count 3.3 X10^3/uL (2.0-7.7); Basophil# 0.03 X10^3/uL; Basophil% 0.5 % (0-1); Eosinophil# 0.11 X10^3/uL; Hematocrit 36.7 % (37-47); Hemoglobin 11.5 g/dL (12.0-15.0); Lymphocyte # 1.55 X10^3/ul (0.83-4.51); Lymphocyte % 27.5 % (19-41); Mean Corp Hgb Conc 31.3 g/dL (32-36); Mean Corpuscular Hgb 27.4 pg (27.0-32.0); Mean Corpuscular Volume 87.6 fL (81-99); Mean Platelet Vol. 10.9 fl (6.2-12.0); Monocyte% 10.7 % (0-10); NRBC Flagged by Analyzer 0 % (0-5); Neutrophil # 3.32 X10^3/uL (2.7-7.7); Neutrophil % 58.9 % (47-70); Platelet Count 181 K/mm3 (150-450); RBC Distribution Width CV 14.6 % (11.6-14.6); RBC Distribution Width SD 46.9 fl (35.1-43.9); Red Blood Count 4.19 M/mm3 (4.2-5.4); White Blood Count 5.6 K/mm3 (4.4-11.0)
[2022-09-20 19:05] LABS: Bacteria 2+ /hpf (None Seen); White Blood Cells 10-25 SEEN /hpf (0-5)
[2022-09-20 19:17] LABS: ALB/GLOB Ratio 0.8 RATIO (0.9-2.4); AST(SGOT) 14 U/L (15-37); Alanine Aminotransfer ALT/SGPT 13 U/L (13-56); Albumin, Serum 3.3 g/dL (3.2-5.0); Alkaline Phosphatase 124 U/L (45-117); Anion Gap 4 (5-15); BUN 29 mg/dL (7-18); Chloride 110 mmol/L (98-107); Creatinine, Serum 1.16 mg/dL (0.55-1.02); EST Glomerular Filtration Rate 47 mL/min (>60); Est Glom Filt Rate - Afr Amer 57 mL/min (>60); Estimated Creatinine Clearance 37.73 ml/min; Globulin 3.9 g/dL (2.2-4.2); Glucose 116 mg/dL (74-106); Potassium 4.4 mmol/L (3.5-5.1); Protein, Total 7.2 g/dL (6.4-8.2); Sodium Level 141 mmol/L (136-145)
--- NOTE | 2022-09-20 19:20 | RAD_ITS ---
STUDY: X-RAY CHEST REASON FOR EXAM: Female, 82 years old. Trauma TECHNIQUE: AP COMPARISON: None. FINDINGS: Surgical clips project over the right axilla. Right hemidiaphragm is elevated. No airspace consolidation. There is no demonstrated pleural abnormality. Normal size heart. Normal mediastinum and sandra. Normal visualized pulmonary arteries. There is atherosclerotic calcification of the aortic arch with tortuosity. No acute bony process. There is no demonstrated abnormality of the visualized soft tissue structures of the upper abdomen. RAD/Chest 1 View (Portable) IMPRESSION: Nonacute portable x-ray examination of the chest. Electronically Signed: Lito Ag (Brooks), at 19:32 EDT ,
--- NOTE | 2022-09-20 20:26 | ED.RN ---
assisted pt up to [facility] needs directions, walker x2 assist to get back into bed.
[2022-09-20] MEDS: Ceftriaxone 1 GM/50 ML BAG IV (20:40)
--- NOTE | 2022-09-20 21:07 | PCM.HP.STD ---
HPI - General General Date of Admission: 09/20/22 Date of Service: 09/20/22 Chief Complaint: Weakness HPI Narrative MIHAELA CARLISLE, is a 82 F with a significant history of hypertension, hyperlipidemia; bladder problem; breast cancer and diabetes mellitus who presents to emergency department with a 2 to 3 days of difficulty with ambulation. Reportedly patient is unable to take care of herself as she is unable to walk. Patient is at home with her . At the emergency department the found the patient has abnormal urinalysis. [facility] Medical History Abnormal mammogram of right breast Bladder problem Breast cancer Diabetes mellitus Hyperlipidemia Hypertension Home Medications aspirin 81 mg tablet,delayed release 81 mg PO DAILY Check with primary doctor 03/01/19 [History Last Taken Unknown] atorvastatin 20 mg tablet 10 mg PO QHS Check with primary doctor 03/01/19 [History Last Taken Unknown] ergocalciferol (vitamin D2) 1,000 unit capsule 2,000 unit PO DAILY Check with primary doctor 12/03/20 [History Last Taken Unknown] quinapril 10 mg tablet 10 mg PO DAILY Check with primary doctor 12/03/20 [History Last Taken Unknown] vit C 226 mg-vit E 90 mg-copper 0.8 mg-zinc oxide-lutein 5 mg capsule (PreserVision Lutein) 1 cap PO DAILY Check with primary doctor 12/03/20 [History Last Taken Unknown] acetaminophen 325 mg tablet (Tylenol) 650 mg (2 x 325 mg) PO Q6H PRN PRN Pain 1-10 Or Fever #0 tabs 12/04/20 [Rx Last Taken Unknown] atenolol 25 mg tablet 25 mg PO DAILY #0 tabs 12/04/20 [Rx Last Taken Unknown] cefdinir 300 mg capsule 300 mg PO Q12 #0 caps 12/04/20 [Rx Last Taken Unknown] donepezil 10 mg tablet 10 mg PO QHS Check with primary doctor #0 tabs 12/04/20 [Rx Last Taken Unknown] metformin 500 mg tablet 500 mg PO BIDCM Check with primary doctor #0 tabs 12/04/20 [Rx Last Taken Unknown] quetiapine 25 mg tablet 12.5 mg (1/2 x 25 mg) PO BID #1 TAB 12/04/20 [Rx Last Taken Unknown] cephalexin 500 mg capsule 500 mg PO Q6 #28 CAPSULES 07/27/22 [Rx Last Taken Unknown] Allergy/AdvReac Type Severity Reaction Status Date / Time No Known Allergies Allergy Verified 07/27/22 16:20 Family History Father Heart disease Mother CVA (cerebral vascular accident) Surgical History H/O mastectomy Social History household members: spouse housing: house number of children: 0 current occupational status: retired history of recent travel: No Smoking Status: Never smoker alcohol intake: never substance use type: does not use ROS ROS Narrative Pertinent positives and pertinent negatives as noted in HPI. All other systems were reviewed and are negative Vital Signs Vital Signs Vital Signs: 09/20/22 17:46 09/20/22 18:33 09/20/22 18:35 Temperature 97.4 F L Temperature Source Temporal Pulse Rate 61 56 L Respiratory Rate 18 18 Respiratory Effort Normal Non-Labored Blood Pressure 156/88 H 184/90 H Blood Pressure Mean 110 121 Pulse Ox 95 91 Oxygen Delivery Method Room Air Room Air 09/20/22 20:17 Temperature Temperature Source Pulse Rate 54 L Respiratory Rate 18 Respiratory Effort Blood Pressure 191/88 H Blood Pressure Mean 122 Pulse Ox 95 Oxygen Delivery Method Room Air Weight Weight: 104.9 kg Body Mass Index (BMI) 34.1 Physical Exam Narrative Physical exam: General: Well-nourished, well-developed. Head: Normocephalic, atraumatic, no tenderness Eyes: Vision is grossly intact. EOMI ENT, no trauma, moist mucous membranes, no rhinorrhea Neck: Nontender, No thyromegaly. CVS: Regular rate and rhythm. S1-S2 present. No murmur, gallop or rub. Respiratory : clear to auscultation bilaterally, chest wall nontender Abdomen: Soft, nontender, nondistended, normal bowel sounds, no masses : Deferred Back: Nontender, no CVA tenderness, no midline spinal tenderness, deformities, step-offs Extremities: Nontender full range of motion, no trauma Skin: Normal color, no trauma, abrasions Neuro: Alert, oriented, cranial nerves II through XII grossly intact. Psychiatry: Normal mood. Normal affect. Not depressed. Not anxious. Results Lab / Micro Data 09/20/22 18:55 09/20/22 18:55 Labs: Laboratory Results - last 24 hr 09/20/22 18:40: Urine Color Yellow, Urine Clarity Sl. Cloudy, Urine pH 6.5, Ur Specific [place] 1.010, Urine Protein 30 H, Urine Glucose (UA) Normal, Urine Ketones Negative, Urine Occult Blood 10 H, Urine Nitrite Positive H, Urine Bilirubin Negative, Urine Urobilinogen Normal, Ur Leukocyte Esterase 500 H, Urine RBC 0 SEEN, Urine WBC 10-25 SEEN, Ur Squamous Epith Cells 0 SEEN, Urine Bacteria 2+, Urine Mucus 0 SEEN 09/20/22 18:55: WBC 5.6, RBC 4.19 L, Hgb 11.5 L, Hct 36.7 L, MCV 87.6, MCH 27.4, MCHC 31.3 L, RDW Std Deviation 46.9 H, RDW Coeff of Phi 14.6, Plt Count 181, MPV 10.9, Immature Gran % (Auto) 0.400, Neut % (Auto) 58.9, Lymph % (Auto) 27.5, [place] % (Auto) 10.7 H, Eos % (Auto) 2.0, Baso % (Auto) 0.5, Absolute Neuts (auto) 3.3, Absolute Lymphs (auto) 1.55, Nucleated RBC % 0, Sodium 141, Potassium 4.4, Chloride 110 H, Carbon Dioxide 27.0, Anion Gap 4 L, BUN 29 H, Creatinine 1.16 H, Estim Creat Clear Calc 37.73, Est GFR (MDRD) Af Amer 57 L, Est GFR (MDRD) Non-Af 47 L, BUN/Creatinine Ratio 25.0 H, Glucose 116 H, Calcium 9.0, Total Bilirubin 0.30, AST 14 L, ALT 13, Alkaline Phosphatase 124 H, Total Protein 7.2, Albumin 3.3, Globulin 3.9, Albumin/Globulin Ratio 0.8 L Radiology Impression Brain CT 09/20/22 18:01 IMPRESSION: No acute intracranial hemorrhage or mass effect. Electronically Signed: Lito Ag (Brooks), at 19:31 EDT , Chest X-Ray 09/20/22 19:20 IMPRESSION: Nonacute portable x-ray examination of the chest. Electronically Signed: Lito Ag (Brooks), at 19:32 EDT , Assessment & Plan Assessment/Plan (1) Acute UTI: (2) Unable to ambulate: (3) Generalized weakness: PLAN: Plan Acute UTI Review of medically department labs showed abnormal urinalysis with positive leukocyte esterase of 500; positive nitrites and pyuria of 10 to 25 cells. Normal white count. Trend CBC. Generalized weakness/inability to ambulate Likely secondary to debility and UTI. Case management consult. PT and OT consult. DVT prophylaxis Subcutaneous Lovenox ordered. Time spent in the patient's overall evaluation,decision-making process, review of diagnostic data, adjustment of management, discussion with other providers, nursing nursing and ancillary staff involved in patient's care documentation, 41 minutes.
[2022-09-20] MEDS: hydrALAZINE 20 MG/ML Vial 10 MG IV (22:50)
[2022-09-21 04:01] VITALS: BP 145/79; PULSE 62; RESP 18; TEMP 36.4; O2SAT 95
[2022-09-21] MEDS: 0.9% Saline Lock 10 ML Syringe IV ×4 (04:06→22:21)
[2022-09-21 07:40] VITALS: O2SAT 93
--- NOTE | 2022-09-21 07:49 | PN.HOSP_ITS ---
Reason for Visit Reason for Visit: Follow-up for failure to thrive, generalized weakness and dementia. Objective Data Objective Data Vital Signs: Vital Signs Temp Pulse Resp BP Pulse Ox O2 Del Method 97.5 F L 62 18 145/79 H 95 Room Air 09/21/22 04:01 09/21/22 04:01 09/21/22 04:01 09/21/22 04:01 09/21/22 04:01 09/21/22 04:01 Oxygen Delivery Method Room Air Weight: 208 lb 15.971 oz Body Mass Index (BMI) 33.7 Intake & Output: Intake and Output for Last 24 Hours 09/19/22 09/20/22 09/21/22 23:59 23:59 23:59 Intake Total 550 / 550 Output Total 800 / 800 Balance 550 / 550 -800 / -800 Lab / Micro Data 09/20/22 18:55 09/20/22 18:55 Labs: Laboratory Results - last 24 hr 09/20/22 18:40: Urine Color Yellow, Urine Clarity Sl. Cloudy, Urine pH 6.5, Ur Specific [place] 1.010, Urine Protein 30 H, Urine Glucose (UA) Normal, Urine Ketones Negative, Urine Occult Blood 10 H, Urine Nitrite Positive H, Urine Bilirubin Negative, Urine Urobilinogen Normal, Ur Leukocyte Esterase 500 H, Urine RBC 0 SEEN, Urine WBC 10-25 SEEN, Ur Squamous Epith Cells 0 SEEN, Urine Bacteria 2+, Urine Mucus 0 SEEN 09/20/22 18:55: WBC 5.6, RBC 4.19 L, Hgb 11.5 L, Hct 36.7 L, MCV 87.6, MCH 27.4, MCHC 31.3 L, RDW Std Deviation 46.9 H, RDW Coeff of Phi 14.6, Plt Count 181, MPV 10.9, Immature Gran % (Auto) 0.400, Neut % (Auto) 58.9, Lymph % (Auto) 27.5, [place] % (Auto) 10.7 H, Eos % (Auto) 2.0, Baso % (Auto) 0.5, Absolute Neuts (auto) 3.3, Absolute Lymphs (auto) 1.55, Nucleated RBC % 0, Sodium 141, Potassium 4.4, Chloride 110 H, Carbon Dioxide 27.0, Anion Gap 4 L, BUN 29 H, Creatinine 1.16 H, Estim Creat Clear Calc 37.73, Est GFR (MDRD) Af Amer 57 L, Est GFR (MDRD) Non-Af 47 L, BUN/Creatinine Ratio 25.0 H, Glucose 116 H, Calcium 9.0, Total Bilirubin 0.30, AST 14 L, ALT 13, Alkaline Phosphatase 124 H, Total Protein 7.2, Albumin 3.3, Globulin 3.9, Albumin/Globulin Ratio 0.8 L Radiography Diagnostic Testing: Radiology Impression Brain CT 09/20/22 18:01 IMPRESSION: No acute intracranial hemorrhage or mass effect. Electronically Signed: Lito Ag (Brooks), at 19:31 EDT , Chest X-Ray 09/20/22 19:20 IMPRESSION: Nonacute portable x-ray examination of the chest. Electronically Signed: Lito Ag (Brooks), at 19:32 EDT , Physical Exam Narrative Patient is not very clear in history but states she does not have burning micturition or increased frequency or urgency. Physical exam: General: Well-nourished, BMI 33.7 kg/m?. Awake, alert and oriented x3. HEENT: Atraumatic, PERRLA, EOMI, Normocephalic Oral: Oral mucosa dry. No Gingival or Mucosal Lesions/ Ulcerations Neck: Supple, No JVD, Negative Carotid Bruits Lungs: Air entry diminished in bilateral lung bases. No crepitation/rhonchi Cardiovascular: Regular rate, Regular Rhythm, Normal S1, Normal S2, No murmurs Abdomen: Bowel Sounds Present, Soft, Non Tender, Non-Distended : No renal angle tenderness. No suprapubic tenderness. Extremities: No edema, Capillary Refill Less than 3 Seconds Skin: No rashes, No breakdown Musculoskeletal: Bilateral knee arthritis, varus deformity. No Tenderness to Palpation of Joints or Extremities Neurological: Cranial nerves II-XII grossly intact, DTR 2+/4 and Symmetrical, Neuro grossly intact Psych/Mental Status: Flat affect. Cognitive decline, dementia. Assessment & Plan Assessment/Plan (1) Acute UTI: (2) Unable to ambulate: (3) Generalized weakness: PLAN: Plan 82-year-old female was admitted with 2 to 3 days of difficulty ambulation, unable to take care of herself. She lives with her at home. 1. Failure to thrive, generalized weakness and unable to ambulate: [facility] Does not have fever or acute lower urinary tract symptoms: UA shows WBC 10-25 cells, 2+ bacteria, LE 500 and nitrite positive. Patient empirically started on IV ceftriaxone. Follow urine culture. 2. Diabetes mellitus type 2, hypertension and dyslipidemia: Home medication reconciliation done. Patient on baby aspirin, atenolol, atorvastatin, lisinopril and metformin. 3. Dementia: Patient on donezepil and quetiapine 4. History of breast cancer: In remission. DVT prophylaxis: On enoxaparin 40 mg subcu daily.
[2022-09-21 08:05] VITALS: BP 171/93; PULSE 61; RESP 18; TEMP 36.4; O2SAT 95
[2022-09-21] MEDS: Enoxaparin 40 MG/0.4 ML Syringe SC (08:10)
[2022-09-21] MEDS: Atenolol 50 MG Tablet PO (10:38)
[2022-09-21] MEDS: Aspirin E.C. 81 MG Tablet PO (10:38)
[2022-09-21] MEDS: QUEtiapine 25 MG Tablet 12.5 MG PO (10:38)
[2022-09-21] MEDS: Multivitamin (Healthy Eyes) Capsule 1 CAP PO (10:38)
[2022-09-21] MEDS: Lisinopril 10 MG Tablet PO (10:38)
--- NOTE | 2022-09-21 12:26 | NURSING ---
pt spouse Sergio and niece/motor inspection mechanic at bedside. States would like to add Mary Gonzales to information as she is niece and motor inspection mechanic. [phone]
[2022-09-21 14:24] VITALS: BP 134/82; PULSE 59; RESP 18; TEMP 36.4; O2SAT 98
[2022-09-21] MEDS: metFORMIN (XR) 500 MG Tablet PO (16:39)
--- NOTE | 2022-09-21 18:45 | NURSING ---
chair alarming, to room, floor wet. pt states i dumped my pitcher while pointing to water pitcher, pt naked in chair. pt uncooperative with leaving gown on, not making eye contact with said nurse when being spoken to as she did earlier.
[2022-09-21] MEDS: QUEtiapine 25 MG Tablet 50 MG PO (18:52)
[2022-09-21 21:36] VITALS: BP 149/83; PULSE 120; RESP 18; TEMP 37.2; O2SAT 97
[2022-09-21] MEDS: Senna/Docusate Sodium 1 Tablet 2 TABLET PO (22:09)
[2022-09-21] MEDS: Donepezil HCl 10 MG Tablet PO (22:09)
[2022-09-21] MEDS: Ceftriaxone 1 GM/50 ML BAG IV (22:10)
[2022-09-21] MEDS: Atorvastatin Calcium 10 MG Tablet PO (22:10)
[2022-09-22 06:38] VITALS: BP 164/77; PULSE 54; RESP 20; TEMP 36.4; O2SAT 98
[2022-09-22 08:12] VITALS: O2SAT 97
[2022-09-22 09:26] VITALS: BP 155/88; PULSE 50; RESP 16; TEMP 36.5; O2SAT 100
[2022-09-22] MEDS: Senna/Docusate Sodium 1 Tablet 2 TABLET PO ×2 (09:37→19:55)
[2022-09-22] MEDS: Multivitamin (Healthy Eyes) Capsule 1 CAP PO (09:37)
[2022-09-22] MEDS: Aspirin E.C. 81 MG Tablet PO (09:37)
[2022-09-22] MEDS: Lisinopril 10 MG Tablet PO (09:38)
[2022-09-22] MEDS: Atenolol 50 MG Tablet PO (09:38)
[2022-09-22] MEDS: QUEtiapine 25 MG Tablet PO ×2 (09:38→19:56)
[2022-09-22] MEDS: Enoxaparin 40 MG/0.4 ML Syringe SC (09:49)
--- NOTE | 2022-09-22 11:45 | CASEMGMT ---
JEMMA CONTRERAS Discharge Planning Assessment: Face to Face with patient for initial transition planning/care coordination assessment.?Pt resting quietly with eyes closed at this time. Pt's at bedside. JEMMA CONTRERAS introduced self and role at [facility] to pt's spouse who voices understanding and is agreeable to participating in assessment.? Care providers, pharmacy,?and demographics verified. ? Admitting dx: UTI, unable to ambulate PCP: [place] (last seen one month ago) Specialists: none Preferred [facility]acy: [facility] Prescription Benefit:?yes Living Will/HPOA:yes, HPOA spouse Sergio LNOK: spouse Sergio Living Arrangements: Pt lives with her spouse in a single story home with basement and ramp to entrance. Per pt's spouse, pt is able to bathe independently (sponge bathes only as pt is unable to lift legs into tub) and spouse assists with dressing. Spouse completes all IADLs. Transportation: spouse drives or friends assist. DME: pt ambulates with a wheeled walker. also has a w/c, and lift chair. HHC: denies previous SNF: pt has been at [facility] in the past (stayed for a week and a half) ? Plan: Pt's spouse states he would like to take pt home if this is in the pt's best interest. Is agreeable to home health if home is appropriate. Discussed PT eval yesterday which noted pt to ambulate only 12 feet. Pt's spouse states he will do whatever is best for pt. Pt slept throughout the assessment. Pt did awaken for short time and when asked did not have input as to her discharge needs. Discussed with JEMMA Bay CM and ERIK Gorman for additional PT/OT eval for follow-up on appropriate DC disposition. Ellie Henriquez RN CM
--- NOTE | 2022-09-22 13:17 | PN.HOSP_ITS ---
Reason for Visit Reason for Visit: Diagnoses Urinary tract infection, site not specified (09/20/22) Difficulty in walking, not elsewhere classified (09/20/22) Weakness (09/20/22) Subjective Subjective Follow-up for generalized weakness. Objective Data Objective Data Vital Signs: Vital Signs Temp Pulse Resp BP Pulse Ox O2 Del Method 97.7 F L 50 L 16 155/88 H 100 Room Air 09/22/22 09:26 09/22/22 09:26 09/22/22 09:26 09/22/22 09:26 09/22/22 09:26 09/22/22 09:26 Oxygen Delivery Method Room Air Weight: 208 lb 15.971 oz Body Mass Index (BMI) 33.7 Intake & Output: Intake and Output for Last 24 Hours 09/20/22 09/21/22 09/22/22 23:59 23:59 23:59 Intake Total 550 / 550 50 / 50 Output Total 1100 / 1100 350 / 350 Balance 550 / 550 -1050 / -1050 -350 / -350 Lab / Micro Data 09/20/22 18:55 09/20/22 18:55 Micro: Microbiology 09/20/22 18:40 Urine, Clean Catch Urine Culture - Final Citrobacter freundii Physical Exam Narrative Patient patient is awake and alert. Looks more cognizant and awake today. Physical exam: General: Well-nourished, BMI 33.7 kg/m?. Awake, alert and oriented x3. HEENT: Atraumatic, PERRLA, EOMI, Normocephalic Oral: Oral mucosa dry. No Gingival or Mucosal Lesions/ Ulcerations Neck: Supple, No JVD, Negative Carotid Bruits Lungs: Air entry diminished in bilateral lung bases. No crepitation/rhonchi Cardiovascular: Regular rate, Regular Rhythm, Normal S1, Normal S2, No murmurs Abdomen: Bowel Sounds Present, Soft, Non Tender, Non-Distended : No renal angle tenderness. No suprapubic tenderness. Extremities: No edema, Capillary Refill Less than 3 Seconds Skin: No rashes, No breakdown Musculoskeletal: Bilateral knee arthritis, varus deformity. No Tenderness to Palpation of Joints or Extremities Neurological: Cranial nerves II-XII grossly intact, DTR 2+/4 and Symmetrical, Neuro grossly intact Psych/Mental Status: Flat affect. Possible early dementia Assessment & Plan Assessment/Plan (1) Acute UTI: (2) Unable to ambulate: (3) Generalized weakness: PLAN: Plan 82-year-old female was admitted with 2 to 3 days of difficulty ambulation, un able to take care of herself. She lives with her at home. 1. Failure to thrive, generalized weakness and unable to ambulate: [facility] Does not have fever or acute lower urinary tract symptoms: UA shows WBC 10-25 cells, 2+ bacteria, LE 500 and nitrite po sitive. Patient empirically started on IV ceftriaxone. Follow urine culture. 09/22: Cystitis/lower urinary tract infection: Urine culture shows Citrobacter freundii more than 100,000 colonies. Sedated with ceftriaxone and therefore we will continue. 2. Diabetes mellitus type 2, hypertension and dyslipidemia: Home medication reconciliation done. Patient on baby aspirin, atenolol, atorvastatin, lisinopril and metformin. 3. Dementia: Patient on donezepil and quetiapine 4. History of breast cancer: In remission. DVT prophylaxis: On enoxaparin 40 mg subcu daily. Charges/Coding Visit Charges Inpatient E&M: 78002 Subs Hosp L2
--- NOTE | 2022-09-22 14:00 | CASEMGMT ---
Addendum entered by Shanique Ward 09/22/22 14:49: A list of SNF providers including quality and resource use data and consistent with the patient?s preferred geographic region, medical needs, and insurance network were provided from the [employer] Guide. Given to pt's and niece. They will review and let SW or CM know of preferences. Niece states they would some time to review the star-ratings and may go on [employer] for further info, so they may not be able to have list of preferences until tomorrow. Original Note: JEMMA CONTRERAS NOTE: KATHRIN Dowell, has worked w/pt w/ and niece present. JEMMA CONTRERAS to room when she was just completing tx today. SNF is recommended. Both and niece are agreeable w/pt going to a SNF, as they feel this would be safest for her. Questions answered. They were made aware a list of SNF's would be provided for them to review and asked to choose top 3 preferences. Georgette SALAZAR RN CM
--- NOTE | 2022-09-22 14:43 | CASEMGMT ---
Discharge Planning SNF list created and sent to RN DIANE. Ying Culver, Discharge Planning Asst.
--- NOTE | 2022-09-22 15:54 | CASEMGMT ---
[facility]. Ying Culver, Discharge Planning Asst.
--- NOTE | 2022-09-22 15:56 | CASEMGMT ---
Social Work SW spoke w/pt's niece and in the room about discharge plan. Their choices as per niece are [facility]. [facility]. [facility] 3. [facility]. SW explained to family no beds in [facility] or [facility]. then spoke to SW at length about his wanting pt to stay here until there is a bed in TCU, and that he would call his piling cutter. SW explained to pt and niece that pt is medically ready for discharge, we can't keep pt in the hospital for several days for a bed in TCU when she is medically ready. After much discussion and pt's niece also joining in on the conversation, pt's okay w/referral to [facility] if TCU definitely does not have a bed. SW also explained if pt were to go to [facility] and still wanted TCU can always speak to [facility] about transferring pt. Family states understanding. SW did leave a message for TCU, and also a referral will be sent to [facility] today. ADELFO Pugh
[2022-09-22 17:50] VITALS: BP 144/93; PULSE 52; RESP 16; TEMP 37.3; O2SAT 96
[2022-09-22] MEDS: metFORMIN (XR) 500 MG Tablet PO (17:52)
[2022-09-22] MEDS: Ceftriaxone 1 GM/50 ML BAG IV (19:52)
[2022-09-22] MEDS: Atorvastatin Calcium 10 MG Tablet PO (19:54)
[2022-09-22] MEDS: 0.9% Saline Lock 10 ML Syringe IV (19:54)
[2022-09-22] MEDS: MELATONIN 3 MG TABLET PO (19:55)
[2022-09-22] MEDS: Donepezil HCl 10 MG Tablet PO (19:56)
[2022-09-22 20:28] VITALS: BP 139/97; PULSE 63; RESP 18; TEMP 37.3; O2SAT 98
[2022-09-23 06:35] VITALS: BP 133/72; PULSE 60; RESP 18; TEMP 37.6; O2SAT 95
[2022-09-23 07:10] VITALS: O2SAT 95
[2022-09-23 08:28] VITALS: BP 141/76; PULSE 63; RESP 16; TEMP 37.3; O2SAT 96
[2022-09-23] MEDS: Aspirin E.C. 81 MG Tablet PO (08:39)
[2022-09-23] MEDS: Multivitamin (Healthy Eyes) Capsule 1 CAP PO (08:39)
[2022-09-23] MEDS: Senna/Docusate Sodium 1 Tablet 2 TABLET PO ×2 (09:14→20:39)
[2022-09-23] MEDS: Enoxaparin 40 MG/0.4 ML Syringe SC (09:15)
[2022-09-23] MEDS: QUEtiapine 25 MG Tablet PO ×2 (09:15→20:39)
[2022-09-23] MEDS: Atenolol 50 MG Tablet PO (09:15)
[2022-09-23] MEDS: Lisinopril 10 MG Tablet PO (09:15)
--- NOTE | 2022-09-23 10:42 | CASEMGMT ---
Discharge Planning TCU unable to accept patient. [facility] accepted. Notfied via [employer] and asked to submit for pre-cert. Ying Culver, Discharge Planning Asst.
--- NOTE | 2022-09-23 11:06 | PCM.PN.HOSP ---
Reason for Visit Reason for Visit: Diagnoses Urinary tract infection, site not specified (09/20/22) Difficulty in walking, not elsewhere classified (09/20/22) Weakness (09/20/22) Subjective Subjective Intermittently patient gets confused. Failure to thrive. Difficulty in walking. Objective Data Objective Data Vital Signs: Vital Signs Temp Pulse Resp BP Pulse Ox O2 Del Method 98.8 F 65 18 143/70 H 95 Room Air 09/24/22 08:57 09/24/22 08:57 09/24/22 08:57 09/24/22 08:57 09/24/22 08:57 09/24/22 08:57 Oxygen Delivery Method Room Air Weight: 208 lb 15.971 oz Body Mass Index (BMI) 33.7 Intake & Output: Intake and Output for Last 24 Hours 09/22/22 09/23/22 09/24/22 23:59 23:59 23:59 Intake Total 250 / 250 50 / 50 Output Total 750 / 750 1000 / 1000 400 / 400 Balance -500 / -500 -950 / -950 -400 / -400 Lab / Micro Data 09/20/22 18:55 09/20/22 18:55 Micro: Microbiology 09/20/22 18:40 Urine, Clean Catch Urine Culture - Final Citrobacter freundii Physical Exam Narrative Patient patient is awake and alert. Sometimes patient blanks out asking question and does not answer. Intermittent lethargy and confusion. Physical exam: General: Well-nourished, BMI 33.7 kg/m?. Intermittent lethargy/confusion. Disorientation. HEENT: Atraumatic, PERRLA, EOMI, Normocephalic Oral: Oral mucosa dry. No Gingival or Mucosal Lesions/ Ulcerations Neck: Supple, No JVD, Negative Carotid Bruits Lungs: Air entry diminished in bilateral lung bases. No crepitation/rhonchi Cardiovascular: Regular rate, Regular Rhythm, Normal S1, Normal S2, No murmurs Abdomen: Bowel Sounds Present, Soft, Non Tender, Non-Distended : No renal angle tenderness. No suprapubic tenderness. Extremities: No edema, Capillary Refill Less than 3 Seconds Skin: No rashes, No breakdown Musculoskeletal: Bilateral knee arthritis, varus deformity. No Tenderness to Palpation of Joints or Extremities Neurological: Cranial nerves II-XII grossly intact, DTR 2+/4 and Symmetrical, Neuro grossly intact Psych/Mental Status: Flat affect. Possible early dementia Assessment & Plan Assessment/Plan (1) Acute UTI: (2) Unable to ambulate: (3) Generalized weakness: PLAN: Plan 82-year-old female was admitted with 2 to 3 days of difficulty ambulation, unable to take care of herself. She lives with her at home. 1. Failure to thrive, generalized weakness and unable to ambulate: [facility] Does not have fever or acute lower urinary tract symptoms: UA shows WBC 10-25 cells, 2+ bacteria, LE 500 and nitrite positive. Patient empirically started on IV ceftriaxone. Follow urine culture. 09/22: Cystitis/lower urinary tract infection: Urine culture shows Citrobacter freundii more than 100,000 colonies. Sedated with ceftriaxone and therefore we will continue. 09/23: Continue IV ceftriaxone. 2. Diabetes mellitus type 2, hypertension and dyslipidemia: Home medication reconciliation done. Patient on baby aspirin, atenolol, atorvastatin, lisinopril and metformin. 09/23: Glucose in BMP is 116. 3. Dementia: Patient on donezepil and quetiapine 4. History of breast cancer: In remission. DVT prophylaxis: On enoxaparin 40 mg subcu daily. Pre-CERT is pending. Initially patient wanted to go to TCU that is not option. Charges/Coding Visit Charges Inpatient E&M: 93059 Subs Hosp L2
--- NOTE | 2022-09-23 13:24 | CASEMGMT ---
Social Work SW spoke with Sara in TCU and they are unable to accept pt. [facility]. SW met with pt, pt spouse and pt niece and updated on SNF availability and that Precert has been started. Pt and family agreeable. Plan: [facility], pending precert [facility]
[2022-09-23 16:15] VITALS: BP 151/85; PULSE 64; RESP 16; TEMP 38.1; O2SAT 100
[2022-09-23] MEDS: Acetaminophen 325 MG Tablet 650 MG PO (16:19)
[2022-09-23] MEDS: metFORMIN (XR) 500 MG Tablet PO (16:19)
[2022-09-23] MEDS: 0.9% Saline Lock 10 ML Syringe IV ×3 (20:39→21:15)
[2022-09-23] MEDS: Atorvastatin Calcium 10 MG Tablet PO (20:39)
[2022-09-23] MEDS: Donepezil HCl 10 MG Tablet PO (20:39)
[2022-09-23] MEDS: MELATONIN 3 MG TABLET PO (20:39)
[2022-09-23] MEDS: Ceftriaxone 1 GM/50 ML BAG IV (21:15)
[2022-09-23 21:16] VITALS: BP 151/95; PULSE 58; RESP 18; TEMP 36.7; O2SAT 100
[2022-09-24 06:45] VITALS: BP 134/78; PULSE 57; RESP 16; TEMP 37.5; O2SAT 96
[2022-09-24] MEDS: Senna/Docusate Sodium 1 Tablet 2 TABLET PO ×2 (08:26→20:47)
[2022-09-24] MEDS: Multivitamin (Healthy Eyes) Capsule 1 CAP PO (08:26)
[2022-09-24] MEDS: Enoxaparin 40 MG/0.4 ML Syringe SC (08:26)
[2022-09-24] MEDS: Aspirin E.C. 81 MG Tablet PO (08:26)
[2022-09-24] MEDS: Polyethylene Glycol 3350 17 GM PACKET PO (08:26)
[2022-09-24] MEDS: QUEtiapine 25 MG Tablet PO ×2 (08:27→20:45)
[2022-09-24] MEDS: Atenolol 50 MG Tablet PO (08:28)
[2022-09-24] MEDS: Lisinopril 10 MG Tablet PO (08:28)
[2022-09-24 08:57] VITALS: BP 143/70; PULSE 65; RESP 18; TEMP 37.1; O2SAT 95
--- NOTE | 2022-09-24 12:08 | PN.HOSP_ITS ---
Reason for Visit Reason for Visit: Diagnoses Urinary tract infection, site not specified (09/20/22) Difficulty in walking, not elsewhere classified (09/20/22) Weakness (09/20/22) Subjective Subjective Follow-up for failure to thrive, difficulty walking. Objective Data Objective Data Vital Signs: Vital Signs Temp Pulse Resp BP Pulse Ox O2 Del Method 98.8 F 65 18 143/70 H 95 Room Air 09/24/22 08:57 09/24/22 08:57 09/24/22 08:57 09/24/22 08:57 09/24/22 08:57 09/24/22 08:57 Oxygen Delivery Method Room Air Weight: 208 lb 15.971 oz Body Mass Index (BMI) 33.7 Intake & Output: Intake and Output for Last 24 Hours 09/22/22 09/23/22 09/24/22 23:59 23:59 23:59 Intake Total 250 / 250 50 / 50 Output Total 750 / 750 1000 / 1000 400 / 400 Balance -500 / -500 -950 / -950 -400 / -400 Lab / Micro Data 09/20/22 18:55 09/20/22 18:55 Micro: Microbiology 09/20/22 18:40 Urine, Clean Catch Urine Culture - Final Citrobacter freundii Physical Exam Narrative Patient is confused, does not answer questions even on repeated asking. Sometimes patient blanks out. Intermittent lethargy and drowsiness. Physical exam: General: Well-nourished, BMI 33.7 kg/m?. Intermittent lethargy/confusion. Disorientation to time and place. HEENT: Atraumatic, PERRLA, EOMI, Normocephalic Oral: Oral mucosa moist. No Gingival or Mucosal Lesions/ Ulcerations Neck: Supple, No JVD, Negative Carotid Bruits Lungs: Air entry diminished in bilateral lung bases. No crepitation/rhonchi Cardiovascular: Regular rate, Regular Rhythm, Normal S1, Normal S2, No murmurs Abdomen: Bowel Sounds Present, Soft, Non Tender, Non-Distended : No renal angle tenderness. No suprapubic tenderness. Extremities: No edema, Capillary Refill Less than 3 Seconds Skin: No rashes, No breakdown Musculoskeletal: Bilateral knee arthritis, varus deformity. No Tenderness to Palpation of Joints or Extremities Neurological: Cranial nerves II-XII grossly intact, DTR 2+/4 and Symmetrical, Neuro grossly intact Psych/Mental Status: Flat affect. Possible early dementia Assessment & Plan Assessment/Plan (1) Acute UTI: (2) Unable to ambulate: (3) Generalized weakness: PLAN: Plan 82-year-old female was admitted with 2 to 3 days of difficulty ambulation, unable to take care of herself. She lives with her at home. 1. Failure to thrive, generalized weakness and unable to ambulate: Patient is being [facility] floor. Does not have fever or acute lower urinary tract symptoms: UA shows WBC 10-25 cells, 2+ bacteria, LE 500 and nitrite positive. Patient empirically started on IV ceftriaxone. Follow urine culture. 09/22: Cystitis/lower urinary tract infection: Urine culture shows Citrobacter freundii more than 100,000 colonies. Sedated with ceftriaxone and therefore we will continue. 09/23: Continue IV ceftriaxone. 2. Diabetes mellitus type 2, hypertension and dyslipidemia: Home medication reconciliation done. Patient on baby aspirin, atenolol, atorvastatin, lisinopril and metformin. 09/23: Glucose in BMP is 116. 09/24: Repeat BMP, magnesium and phosphorus today. 3. Dementia: Patient on donezepil and quetiapine 4. History of breast cancer: In remission. DVT prophylaxis: On enoxaparin 40 mg subcu daily. Pre-CERT is pending. Initially patient wanted to go to TCU that is not option. Pre-CERT is still pending. Charges/Coding Visit Charges Inpatient E&M: 47394 Subs Hosp L2
--- NOTE | 2022-09-24 12:14 | CASEMGMT ---
Discharge Planning Updates sent to [facility] as requested for pre-cert. Ying Culver, Discharge Planning Asst.
[2022-09-24 13:46] VITALS: BP 129/77; PULSE 60; RESP 16; TEMP 36.7; O2SAT 95
[2022-09-24 13:53] LABS: Anion Gap 7 (5-15); BUN 27 mg/dL (7-18); BUN/Creat Ratio 23.1 RATIO (10-20); Calcium,Total 8.8 mg/dL (8.5-10.1); Chloride 107 mmol/L (98-107); Creatinine, Serum 1.17 mg/dL (0.55-1.02); EST Glomerular Filtration Rate 47 mL/min (>60); Est Glom Filt Rate - Afr Amer 57 mL/min (>60); Estimated Creatinine Clearance 33.51 ml/min; Glucose 147 mg/dL (74-106); Magnesium 1.7 mg/dL (1.6-2.6); Potassium 3.5 mmol/L (3.5-5.1); Sodium Level 140 mmol/L (136-145)
--- NOTE | 2022-09-24 16:19 | CASEMGMT ---
Social Work [facility] reports precert is still pending. SW met with pt and and updated. Plan: [facility], pending precert ELADIO Villaseñor
[2022-09-24] MEDS: metFORMIN (XR) 500 MG Tablet PO (17:11)
[2022-09-24] MEDS: Ceftriaxone 1 GM/50 ML BAG IV (20:45)
[2022-09-24] MEDS: Atorvastatin Calcium 10 MG Tablet PO (20:45)
[2022-09-24] MEDS: Donepezil HCl 10 MG Tablet PO (20:45)
[2022-09-24] MEDS: MELATONIN 3 MG TABLET PO (20:46)
[2022-09-24] MEDS: Acetaminophen 325 MG Tablet 650 MG PO (20:46)
[2022-09-24 20:58] VITALS: BP 134/74; PULSE 63; RESP 18; TEMP 36.7; O2SAT 95
[2022-09-25 04:00] VITALS: BP 133/79; PULSE 51; RESP 14; TEMP 36.8; O2SAT 100
[2022-09-25 08:50] VITALS: BP 138/75; PULSE 52; RESP 18; TEMP 36.6; O2SAT 92
[2022-09-25] MEDS: Multivitamin (Healthy Eyes) Capsule 1 CAP PO (08:51)
[2022-09-25] MEDS: Polyethylene Glycol 3350 17 GM PACKET PO (08:51)
[2022-09-25] MEDS: QUEtiapine 25 MG Tablet PO (08:51)
[2022-09-25] MEDS: Atenolol 50 MG Tablet PO (08:51)
[2022-09-25] MEDS: Senna/Docusate Sodium 1 Tablet 2 TABLET PO (08:51)
[2022-09-25] MEDS: Enoxaparin 40 MG/0.4 ML Syringe SC (08:51)
[2022-09-25] MEDS: Aspirin E.C. 81 MG Tablet PO (08:51)
[2022-09-25] MEDS: Lisinopril 10 MG Tablet PO (08:51)
--- NOTE | 2022-09-25 10:06 | TREXTCAR_ITS ---
Diet Diet Order/Speech Therapy: 09/20/22 23:40 Diet: Consistent Carb - Calorie Controlled Food consistency:: Regular Liquid Consistency:: Regular/Thin Dietary Modifications:: Cardiac / Heart Healthy Is pt able to select menu?: No Diet Comments: cut food into bite size pieces so pt can self-feed How many daily calories?: 1800 calorie Routine Orders/Code Status Suppository Type: Dulcolax 10mg Suppository Frequency: Daily PRN Routine Lab Work: BMP (in 1 week) Code Status: Full Code Therapies Weight Bearing: Weight bearing as tolerated Extremity Affected:: Bilateral Lower Physical Therapy: Eval and Treat Occupational Therapy: Eval and Treat Speech Therapy: Eval and Treat Problem/Diagnosis (1) Acute UTI: Status: Acute Code(s): N39.0 - Urinary tract infection, site not specified (2) Unable to ambulate: Status: Acute Code(s): R26.2 - Difficulty in walking, not elsewhere classified (3) Generalized weakness: Status: Acute Code(s): R53.1 - Weakness Plan 82-year-old female was admitted with 2 to 3 days of difficulty ambulation, unable to take care of herself. She lives with her at home. 1. Failure to thrive, generalized weakness and unable to ambulate: Patient is being admitted on [facility] floor. Does not have fever or acute lower urinary tract symptoms: UA shows WBC 10-25 cells, 2+ bacteria, LE 500 and nitrite positive. Patient empirically started on IV ceftriaxone. Follow urine culture. 09/22: Cystitis/lower urinary tract infection: Urine culture shows Citrobacter freundii more than 100,000 colonies. Sedated with ceftriaxone and therefore we will continue. 2. Diabetes mellitus type 2, hypertension and dyslipidemia: Home medication reconciliation done. Patient on baby aspirin, atenolol, atorvastatin, lisinopril and metformin. 3. Dementia: Patient on donezepil and quetiapine 4. History of breast cancer: In remission. DVT prophylaxis: On enoxaparin 40 mg subcu daily. Allergies/Procedures Done in Hospital Allergies No Known Allergies Allergy (Verified 07/27/22 16:20) Type of Care/Length of Stay Estimated LOS: Convalescent Care Less Than 30 days Type of Care Needed: Skilled Rehab Potential: Good Prognosis: Good Additional Orders/Day of Discharge Day of Discharge: 09/25/22 Dietary and Speech Recommendations Dietitian Recommendations/Changes: Will changed diet to 1800 valery Cardiac d/t issues w/ diabetes, cardiac disease and edema Will have dietary cut food into bite size pieces so that pt can self feed. Discharge Plan Admission Admit Date/Time: 09/20/22 21:59 Attending Provider: Jaycob Rg Primary Care Provider: Irais Reynoso Consulting Providers: Yosef Resendez Discharge Orders/Prescriptions Prescriptions: New polyethylene glycol 3350 17 gram Powder In Packet 17 g PO DAILY Qty: 0 0RF sennosides-docusate sodium [Stool Softener-Stimulant Laxat] 8.6-50 mg Tablet 2 tab PO BID Qty: 0 0RF ciprofloxacin HCl 500 mg Tablet 500 mg PO BID 3 Days Qty: 6 0RF Continued atorvastatin 20 mg tablet 10 mg PO QHS aspirin 81 mg tablet,delayed release (DR/EC) 81 mg PO DAILY ergocalciferol (vitamin D2) 1,000 unit Capsule 2,000 unit PO DAILY PreserVision Lutein 226 mg-200 unit -5 mg-0.8 mg Capsule 1 cap PO DAILY acetaminophen [Tylenol] 325 mg Tablet 650 mg PO Q6H PRN PRN (Reason: Pain 1-10 Or Fever) Qty: 0 0RF lisinopril 10 mg tablet 10 mg PO DAILY atenolol 25 mg Tablet 50 mg PO DAILY Changed quetiapine 25 mg Tablet 25 mg PO BID Qty: 1 0RF Rx Instructions: Hold for sedation. Held donepezil 10 mg tablet 10 mg PO QHS Qty: 0 0RF Hold Instructions: Hold for 3 days while patient is on ciprofloxacin. Patient Comments: TAKE 1 TABLET BY MOUTH EVERYDAY AT BEDTIME metformin 500 mg tablet extended release 24 hr 500 mg PO QPM Hold Instructions: Hold for 7 days and repeat BMP to see kidney function. Discontinued quinapril 10 MG tablet 10 mg PO DAILY cefdinir 300 mg Capsule 300 mg PO Q12 Qty: 0 0RF Rx Instructions: take for seven days starting 12/05/20 cephalexin [cephalexin] 500 mg capsule 500 mg PO Q6 Qty: 28 0RF triamterene-hydrochlorothiazid 37.5-25 mg capsule 1 cap PO BID Rx Instructions: take 1/2 tab BID Referrals / Follow Up: Irais Reynoso MD [Primary Care Provider] - Within 2 Weeks Disposition Disposition (needs filled in before D/C Order can be placed): Retirement Facility
[2022-09-25] MEDS: Ciprofloxacin 500 MG Tablet PO (10:32)
--- NOTE | 2022-09-25 10:37 | DS.PCM_ITS ---
Providers Date of Admission: 09/20/22 Date of Discharge: 09/25/22 Primary Care Physician: Dr. Irais Reynoso MD Reason For Visit: UTI Diagnosis Discharge Diagnosis (1) Acute UTI: Status: Acute Code(s): N39.0 - Urinary tract infection, site not specified (2) Unable to ambulate: Status: Acute Code(s): R26.2 - Difficulty in walking, not elsewhere classified (3) Generalized weakness: Status: Acute Code(s): R53.1 - Weakness Plan 82-year-old female was admitted with 2 to 3 days of difficulty ambulation, unable to take care of herself. She lives with her at home. 1. Failure to thrive, generalized weakness and unable to ambulate: [facility] Does not have fever or acute lower urinary tract symptoms: UA shows WBC 10-25 cells, 2+ bacteria, LE 500 and nitrite positive. Patient empirically started on IV ceftriaxone. Follow urine culture. 09/22: Cystitis/lower urinary tract infection: Urine culture shows Citrobacter freundii more than 100,000 colonies. Sedated with ceftriaxone and therefore we will continue. 09/25: Patient had 4 days of IV ceftriaxone. Discharged on 3 more days of Cipro 500 mg twice daily. Hold Aricept while patient is on ciprofloxacin to avoid QT prolongation. 2. Diabetes mellitus type 2, hypertension and dyslipidemia: Home medication reconciliation done. Patient on baby aspirin, atenolol, atorvastatin, lisinopril and metformin. 3. Dementia: Patient on donezepil and quetiapine but will hold donezepil. Patient has dementia with symptoms of acute psychotic symptoms including hallucination and aggressive behavior therefore we will continue quetiapine. 4. History of breast cancer: In remission. DVT prophylaxis: On enoxaparin 40 mg subcu daily. Discharge medication reconciliation done. Discharge follow-up instructions completed. Discharge process discussed with the patient and all questions were answered to patient's satisfaction. Discharged to SNF. Total time spent, exact 35 minutes on discharge meds reconciliation, examination, coordination of care with nurses and ancillary staff, review of imaging and blood test and discussion with the patient on follow-up instructions. Medications at Discharge Home Medications aspirin 81 mg tablet,delayed release 81 mg PO DAILY Check with primary doctor 03/01/19 atorvastatin 20 mg tablet 10 mg PO QHS Check with primary doctor 03/01/19 ergocalciferol (vitamin D2) 1,000 unit capsule 2,000 unit PO DAILY Check with primary doctor 12/03/20 vit C 226 mg-vit E 90 mg-copper 0.8 mg-zinc oxide-lutein 5 mg capsule (PreserVision Lutein) 1 cap PO DAILY Check with primary doctor 12/03/20 acetaminophen 325 mg tablet (Tylenol) 650 mg (2 x 325 mg) PO Q6H PRN PRN Pain 1- 10 Or Fever #0 tabs 12/04/20 donepezil 10 mg tablet 10 mg PO QHS Check with primary doctor #0 tabs 12/04/20 atenolol 25 mg tablet 50 mg PO DAILY check with PCP 09/21/22 lisinopril 10 mg tablet 10 mg PO DAILY check with pcp 09/21/22 metformin 500 mg tablet,extended release 24 hr 500 mg PO QPM check with pcp 09/21/22 ciprofloxacin HCl 500 mg tablet 500 mg PO BID 3 days #6 tabs 09/25/22 polyethylene glycol 3350 17 gram oral powder packet 17 g PO DAILY #0 ea 09/25/22 quetiapine 25 mg tablet 25 mg PO BID check pcp #1 TAB 09/25/22 sennosides 8.6 mg-docusate sodium 50 mg tablet (Stool Softener-Stimulant Laxative) 2 tab PO BID #0 tabs 09/25/22 Physical Exam Narrative Patient is awake but has blank look. She knows her name and date of but cannot read time on the wall clock. She can see the hands. She knows the name of her . Intermittent lethargy. Physical exam: General: Well-nourished, BMI 33.7 kg/m?. Intermittent lethargy/confusion. Disorientation to time and place. HEENT: Atraumatic, PERRLA, EOMI, Normocephalic Oral: Oral mucosa moist. No Gingival or Mucosal Lesions/ Ulcerations Neck: Supple, No JVD, Negative Carotid Bruits Lungs: Air entry diminished in bilateral lung bases. No crepitation/rhonchi Cardiovascular: Regular rate, Regular Rhythm, Normal S1, Normal S2, No murmurs Abdomen: Bowel Sounds Present, Soft, Non Tender, Non-Distended : Denies dysuria. No renal angle tenderness. No suprapubic tenderness. Extremities: No edema, Capillary Refill Less than 3 Seconds Skin: No rashes, No breakdown Musculoskeletal: Bilateral knee arthritis, varus deformity. No Tenderness to Palpation of Joints or Extremities Neurological: Cranial nerves II-XII grossly intact, DTR 2+/4 and Symmetrical, Neuro grossly intact Psych/Mental Status: Flat affect. Possible early dementia Weight / BMI Weight Weight: 208 lb 15.971 oz Body Mass Index (BMI) 33.7 ABG / Lab / Microbiology Data 09/20/22 18:55 09/24/22 13:14 Laboratory: Laboratory Results - last 24 hr 09/24/22 13:14: Sodium 140, Potassium 3.5, Chloride 107, Carbon Dioxide 26.0, Anion Gap 7, BUN 27 H, Creatinine 1.17 H, Estim Creat Clear Calc 33.51, Est GFR (MDRD) Af Amer 57 L, Est GFR (MDRD) Non-Af 47 L, BUN/Creatinine Ratio 23.1 H, Glucose 147 H, Calcium 8.8, Phosphorus 3.0, Magnesium 1.7 Microbiology: Microbiology 09/20/22 18:40 Urine, Clean Catch Urine Culture - Final Citrobacter freundii Meaningful Use Info Meaningful Use Diagnoses (Choose all that apply): None applicable Discharge Plan Admission Admit Date/Time: 09/20/22 21:59 Attending Provider: Jaycob Rg Primary Care Provider: Irais Reynoso Consulting Providers: Yosef Resendez Discharge Orders/Prescriptions Prescriptions: New polyethylene glycol 3350 17 gram Powder In Packet 17 g PO DAILY Qty: 0 0RF sennosides-docusate sodium [Stool Softener-Stimulant Laxat] 8.6-50 mg Tablet 2 tab PO BID Qty: 0 0RF ciprofloxacin HCl 500 mg Tablet 500 mg PO BID 3 Days Qty: 6 0RF Continued atorvastatin 20 mg tablet 10 mg PO QHS aspirin 81 mg tablet,delayed release (DR/EC) 81 mg PO DAILY ergocalciferol (vitamin D2) 1,000 unit Capsule 2,000 unit PO DAILY PreserVision Lutein 226 mg-200 unit -5 mg-0.8 mg Capsule 1 cap PO DAILY acetaminophen [Tylenol] 325 mg Tablet 650 mg PO Q6H PRN PRN (Reason: Pain 1-10 Or Fever) Qty: 0 0RF lisinopril 10 mg tablet 10 mg PO DAILY atenolol 25 mg Tablet 50 mg PO DAILY Changed quetiapine 25 mg Tablet 25 mg PO BID Qty: 1 0RF Rx Instructions: Hold for sedation. Held donepezil 10 mg tablet 10 mg PO QHS Qty: 0 0RF Hold Instructions: Hold for 3 days while patient is on ciprofloxacin. Patient Comments: TAKE 1 TABLET BY MOUTH EVERYDAY AT BEDTIME metformin 500 mg tablet extended release 24 hr 500 mg PO QPM Hold Instructions: Hold for 7 days and repeat BMP to see kidney function. Discontinued quinapril 10 MG tablet 10 mg PO DAILY cefdinir 300 mg Capsule 300 mg PO Q12 Qty: 0 0RF Rx Instructions: take for seven days starting 12/05/20 cephalexin [cephalexin] 500 mg capsule 500 mg PO Q6 Qty: 28 0RF triamterene-hydrochlorothiazid 37.5-25 mg capsule 1 cap PO BID Rx Instructions: take 1/2 tab BID Referrals / Follow Up: Irais Reynoso MD [Primary Care Provider] - Within 2 Weeks Disposition Disposition (needs filled in before D/C Order can be placed): Group Home Facility Charges/Coding Visit Charges Inpatient E&M: 01177 Disch Hosp >30min
--- NOTE | 2022-09-25 11:07 | CASEMGMT ---
Discharge Planning Discharge orders, signed med list, and transport time sent to [facility] via [facility]. [facility] will transport patient by cot, pickup time is noon. Nursing and SW notified. Ying Culver, Discharge Planning Asst.
[2022-09-25 11:19] VITALS: BP 131/67; PULSE 52; RESP 18; TEMP 36.4; O2SAT 93
--- NOTE | 2022-09-25 11:20 | CASEMGMT ---
Social Work 7000 exemption form completed in [employer]. ERIK met with pt and updated on discharge time and place. Phone call to pt spouse Sergio and updated. Sergio is agreeable with dc plan. Disposition: [place], skilled level of care under convalescent stay ELADIO Villaseñor
--- NOTE | 2022-09-26 09:21 | NURSING ---
received phone call from pt's inquiring how he get his transfered from [facility] where she was discharged to yesterday to TCU. pt verbalized he is unhappy with the drive there. talked with Ying from as well as Cheryl Ocampo. instructed pt's to talk with social media executive at [facility] about making a referral to tcu. verbalized understanding. call placed to TCU referral line with information that pt's would be making this request.
== END 2022-09-25 13:09 | disposition skilled nursing facility (03) | DRG 690 ==
LOC: ED 21:50 → MS3 22:07
PROVIDERS: Admitting Provider Hospitalist; Emergency Provider Emergency Medicine; PCP Family Medicine; Visit Provider Internal Medicine
DX: N30.00 Acute cystitis without hematuria (principal); F03.911 Unspecified dementia, unspecified severity, with agitation; F03.92 Unspecified dementia, unspecified severity, with psychotic disturbance; R62.7 Adult failure to thrive; E11.9 Type 2 diabetes mellitus without complications; E78.5 Hyperlipidemia, unspecified; B96.89 Other specified bacterial agents as the cause of diseases classified elsewhere; I10 Essential (primary) hypertension; R26.2 Difficulty in walking, not elsewhere classified; Z68.33 Body mass index [BMI] 33.0-33.9, adult; Z79.82 Long term (current) use of aspirin; Z79.84 Long term (current) use of oral hypoglycemic drugs; Z79.899 Other long term (current) drug therapy; Z85.3 Personal history of malignant neoplasm of breast
CPT/HCPCS: 36415; 70450; 71045; 80048; 80053; 81001; 83735; 84100; 85025; 87077; 87086; 87088; 87186; 93005; 97162; 97166; 97530; 97535; 99285; J7040; J7050; A4216